=== PATIENT | female | born 1980 | race Caucasian/White ===

== ENCOUNTER → 2019-07-23 | Outpatient (CLI) | payer OTHER ==
--- NOTE | 2019-07-23 13:51 | RAD ---
EXAM: Pelvic sonogram. HISTORY: Pain. TECHNIQUE: Transabdominal and transvaginal sonographic imaging of the pelvis was performed. COMPARISON: None. FINDINGS: The uterus measures 8.7 x 4.5 x 5.3 cm. The endometrial stripe measures 13 mm in thickness. The right ovary is obscured due to bowel gas. The left ovary is normal in size and demonstrates normal blood flow. There are small left ovarian follicles. There is no pelvic free fluid. IMPRESSION: 1. Prominent endometrial stripe. This is within normal limits for a premenopausal female. 2. Obscured right ovary. The left ovary is unremarkable. Electronically signed by: Leora Siddiqui MD (07/23/2019 1:48 PM) [facility]
== END | disposition home or self-care (01) ==
LOC: US 12:45
PROVIDERS: ATTEND Obstetrics & Gynecology
DX: N83.8 Other noninflammatory disorders of ovary, fallopian tube and broad ligament (principal); N94.6 Dysmenorrhea, unspecified; N94.10 Unspecified dyspareunia
CPT/HCPCS: 76830; 76856

== ENCOUNTER 2019-08-26 16:10 | Emergency (ER) | payer OTHER ==
[~2019-08-26] VITALS: Ht 157.5 cm; Wt 44.3 kg
[2019-08-26] MEDS ORDERED: SULF1TAB23 PO (16:54)
--- NOTE | 2019-08-26 16:54 | PHYS DOC ---
Past History Past Medical History: Endometriosis Additional Past Medical Histor: endometriosis Past Surgical History: Tubal ligation Additional Past Surgical Histo: umbilical hernia repair with mesh placed; surgery for endometriosis Alcohol Use: None Drug Use: None Adult General Chief Complaint Chief Complaint: BREAST PROBLEM HPI HPI Patient is a 39-year-old female, who presents to the emergency department for evaluation of some right breast pain which has an present for the past 2-3 days. She has had a small amount of crusty nipple discharge, no fevers or chills. The right breast feels slightly enlarged and warm compared to the left. She has not had any fevers or chills. She is not breast-feedingher youngest child is 4. There are no alleviating or exacerbating factors to her symptoms otherwise. Review of Systems Review of Systems Constitutional: Denies fever or chills [] Eyes: Denies change in visual acuity, redness, or eye pain [] HENT: Denies nasal congestion or sore throat [] Respiratory: Denies cough or shortness of breath [] Integument: Denies rash or skin lesions [] Allergies Allergies Allergies Coded Allergies Type Severity Reaction Last Updated Verified adhesive Allergy Unknown 08/26/19 Yes latex Allergy Unknown 08/26/19 Yes Physical Exam Physical Exam PHYSICAL EXAM: CONSTITUTIONAL: Well developed, well nourished HEAD: normocephalic, atraumatic EENT: PERRL, EOMI. Conjunctivae normal color, sclerae non-icteric; moist mucous membranes. NECK: Supple, non-tender; no meningismus. LUNGS: Lungs CTA, breathing even and unlabored. Normal air movement. HEART: Regular rate and rhythm, no murmur CHEST: No deformity; non-tender ABDOMEN: The abdomen is soft, and non-tender, no masses or bruits. There is a well-healed abdominal surgical scar. EXTREM: Normal ROM; no deformity, no calf tenderness. Normal pulses palpable in all extremities. There is no pedal edema. SKIN: No rash; no diaphoresis. There is very mild warmth of the right breast, compared to left, some questionable mild erythema, but no definite palpable masses, no abscess, the nipple is otherwise normal. There is no other abnormality. Exam was performed in the presence of the patient's nurse, Cristela. NEURO: Alert; normal speech and cognition; CN's grossly intact; strength grossly intact without focal deficit. BACK: No CVA TTP. Current Patient Data Vital Signs Vital Signs Date Time Temp Pulse Resp B/P (MAP) Pulse Ox O2 Delivery O2 Flow Rate FiO2 08/26/19 16:24 97.6 96 16 98 EKG EKG [] Radiology/Procedures Radiology/Procedures [] Course & Med Decision Making Course & Med Decision Making I discussed suspected diagnosis with the patient, therapeutic trial of antibiotics, the need for close follow-up, and return precautions. Dragon Disclaimer Dragon Disclaimer This electronic medical record was generated, in whole or in part, using a voice recognition dictation system. Departure Departure: Impression: Primary Impression: Mastitis Disposition: 01 HOME, SELF-CARE Condition: STABLE Referrals: ROBERT LUTZ (PCP) Patient Instructions: Mastitis Additional Instructions: Ibuprofen 400-600 mg every 6 hours may help improve your symptoms. Applying a heating pad to the affected area may help improve your symptoms. Scripts Sulfamethoxazole/Trimethoprim (BACTRIM 400-80 MG TABLET) 1 Each Tablet 1 TAB PO BID for - for 7 Days, #14 TAB 0 Refills Prov: GREG SHULTZ MD 08/26/19 GREG SHULTZ MD Aug 26, 2019 16:54
[2019-08-26 17:16] VITALS: BP 89/56
== END 2019-08-26 17:16 | disposition home or self-care (01) ==
LOC: ER 16:10
DX: N64.4 Mastodynia (principal); Z98.51 Tubal ligation status; Z88.8 Allergy status to other drugs, medicaments and biological substances; Z91.040 Latex allergy status
CPT/HCPCS: 99283

== ENCOUNTER 2019-10-13 16:13 | Emergency (ER) | payer OTHER ==
[~2019-10-13] VITALS: Ht 157.5 cm; Wt 44.4 kg
[~2019-10-13 16:13] MED LIST: SULF1TAB23 PO
[2019-10-13] MEDS ORDERED: HALOPERIDOL LACT 5 MG/ML VIAL. IM ONE (16:45)
[2019-10-13 17:17] VITALS: BP 90/58
--- NOTE | 2019-10-13 17:24 | EKG ---
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
--- NOTE | 2019-10-13 17:37 | PHYS DOC ---
Past History Past Medical History: Endometriosis, GERD Additional Past Medical Histor: endometriosis Past Surgical History: No Surgical History Additional Past Surgical Histo: umbilical hernia repair with mesh placed; surgery for endometriosis Alcohol Use: None Drug Use: None Adult General Chief Complaint Chief Complaint: ANXIETY/PANIC ATTACK [facility] HPI Patient is a 39-year-old female with history of chronic back pain, endometriosis, tubal ligation, ventral hernia repair and anxiety who presents with palpitations, shortness of breath and increased anxiety state starting 1 hour prior to ED arrival. Patient denies known triggers. States she had said similar episodes and has been treated for anxiety. Patient is currently on Valium 7.5 mg nightly. She is process of weaning herself off of Valium, but has recurred daily benzodiazepines for at least 2 years. Patient does report chest pain. No fever, cough, abdominal pain. No nausea vomiting or diarrhea. No urinary frequency urgency or burning. No other acute symptoms or complaints.[] Review of Systems Review of Systems Constitutional: Denies fever or chills [] Eyes: Denies change in visual acuity, redness, or eye pain [] HENT: Denies nasal congestion or sore throat [] Respiratory: Denies cough or shortness of breath [] Cardiovascular: No additional information not addressed in HPI [] GI: Denies abdominal pain, nausea, vomiting, bloody stools or diarrhea [] : Denies dysuria or hematuria [] Musculoskeletal: Denies back pain or joint pain [] Integument: Denies rash or skin lesions [] Neurologic: Denies headache, focal weakness or sensory changes [] Endocrine: Denies polyuria or polydipsia [] All other systems were reviewed and found to be within normal limits, except as documented in this note. Current Medications Current Medications Current Medications Medications (Trade) Dose Ordered Sig/Angelita Start Time Stop Time Status Last Admin Dose Admin Haloperidol Lactate (Haldol) 2.5 mg 1X ONCE 10/13/19 16:45 10/13/19 16:46 DC 10/13/19 16:39 2.5 MG Allergies Allergies Allergies Coded Allergies Type Severity Reaction Last Updated Verified adhesive Allergy Unknown 08/26/19 Yes latex Allergy Unknown 08/26/19 Yes Physical Exam Physical Exam Constitutional: Anxious, tearful, no acute distress[] HENT: Normocephalic, atraumatic, bilateral external ears normal, oropharynx moist, no oral exudates, nose normal. [] Eyes: PERRLA, EOMI, conjunctiva normal, no discharge. [] Neck: Normal range of motion, no tenderness, supple, no stridor. [] Cardiovascular:Heart rate regular rhythm, no murmur [] Lungs & Thorax: Bilateral breath sounds clear to auscultation [] Abdomen: Bowel sounds normal, soft, minimal lower abdominal tenderness. [] Skin: Warm, dry, no erythema, no rash. [] Back: No tenderness, no CVA tenderness. [] Extremities: No tenderness, no edema. [] Neurologic: Alert and oriented X 3, normal motor function, normal sensory function, no focal deficits noted. [] Psychologic: Affect normal, judgement normal, mood normal. [] Current Patient Data Vital Signs Vital Signs Date Time Temp Pulse Resp B/P (MAP) Pulse Ox O2 Delivery O2 Flow Rate FiO2 10/13/19 16:19 97.8 90 38 102/73 (83) 100 Room Air EKG EKG [EKG: Reviewed] Radiology/Procedures Radiology/Procedures [] Course & Med Decision Making Course & Med Decision Making Pertinent Labs and Imaging studies reviewed. (See chart for details) Although all given with improvement of symptoms. Patient breathing comfortably, decreased anxiety state. Vital signs stable. Recommend continued home medications with PCP follow-up.] Rudion Disclaimer Dragon Disclaimer This electronic medical record was generated, in whole or in part, using a voice recognition dictation system. Departure Departure: Impression: Primary Impression: Anxiety attack Disposition: HOME, SELF-CARE Condition: STABLE Referrals: ROBERT LUTZ (PCP) Patient Instructions: Anxiety and Panic Attacks Additional Instructions: Please go home and rest. Follow up with your PCP and continue home anxiety medication. Follow-up with your PCP as needed for further management of anxiety symptoms. RIKI ARCINIEGA DO Oct 13, 2019 17:37
== END 2019-10-13 17:48 | disposition home or self-care (01) ==
LOC: ER 16:13
DX: F41.9 Anxiety disorder, unspecified (principal); R00.2 Palpitations; R06.02 Shortness of breath; K21.9 Gastro-esophageal reflux disease without esophagitis; Z98.890 Other specified postprocedural states; Z91.048 Other nonmedicinal substance allergy status; Z91.040 Latex allergy status
CPT/HCPCS: 93005; 96372; 99284; J1630

== ENCOUNTER 2019-10-21 09:27 | Emergency (ER) | payer OTHER ==
[~2019-10-21] VITALS: Ht 157.5 cm; Wt 44.4 kg
[2019-10-21 09:37] VITALS: BP 99/72
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
--- NOTE | 2019-10-21 10:28 | RAD ---
EXAM: Chest and right ribs, 4 views. HISTORY: Pain. COMPARISON: None. FINDINGS: A frontal view of the chest and 3 views of the right ribs are obtained. There is no infiltrate, pleural effusion or pneumothorax. The heart is normal in size. No displaced rib fracture is seen. There is a circumscribed nodule overlying the right lower lobe due to nipple shadow. IMPRESSION: No acute pulmonary or osseous finding. Electronically signed by: Leora Siddiqui MD (10/21/2019 10:25 AM) [id number]
[2019-10-21] MEDS ORDERED: HYDR-3165 PO (10:44)
[2019-10-21] MEDS ORDERED: HYDROcodone/APAP 5/325MG 1 TAB TABLET ONE (10:57)
[2019-10-21] MEDS ORDERED: HYDROcodone/APAP 5/325MG 1 TAB TABLET PO ONE (11:00)
== END 2019-10-21 11:00 | disposition home or self-care (01) ==
LOC: ER 09:27
DX: S20.211A Contusion of right front wall of thorax, initial encounter (principal); K21.9 Gastro-esophageal reflux disease without esophagitis; Z91.041 Radiographic dye allergy status; Z91.048 Other nonmedicinal substance allergy status; X50.1XXA Overexertion from prolonged static or awkward postures, initial encounter; Y93.89 Activity, other specified; Y92.89 Other specified places as the place of occurrence of the external cause; Y99.8 Other external cause status
CPT/HCPCS: 71101; 99284

== ENCOUNTER 2019-10-27 11:07 | Emergency (ER) | payer OTHER ==
[~2019-10-27] VITALS: Ht 157.5 cm; Wt 44.4 kg
[~2019-10-27 11:07] MED LIST changes: +HYDR-3165 PO
[2019-10-27 11:21] VITALS: BP 99/72
[2019-10-27] MEDS ORDERED: IBUP800T19 PO (11:27)
[2019-10-27] MEDS ORDERED: PRED20TA PO (11:27)
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
--- NOTE | 2019-10-27 11:47 | RAD ---
Study: SHOULDER 2+V RIGHT Indication: Pain. Comparison: None. Findings: No acute fracture seen at the right shoulder girdle. Alignment is maintained. Unremarkable partially visualized right hemithorax. Impression: No acute osseous abnormality. Electronically signed by: DEVENDRA KENDALL MD (10/27/2019 11:44 AM) [id number]
== END 2019-10-27 11:59 | disposition home or self-care (01) ==
LOC: ER 11:07
DX: M25.511 Pain in right shoulder (principal); K21.9 Gastro-esophageal reflux disease without esophagitis; Z91.040 Latex allergy status; Z91.048 Other nonmedicinal substance allergy status
CPT/HCPCS: 29240; 73030; 99284

== ENCOUNTER 2020-05-11 09:52 | Emergency (ER) | payer OTHER ==
[~2020-05-11] VITALS: Ht 157.5 cm; Wt 44.4 kg
[~2020-05-11 09:52] MED LIST changes: +IBUP800T19 PO; +PRED20TA PO
--- NOTE | 2020-05-11 09:58 | PHYS DOC ---
Past History Past Medical History: Anxiety, Endometriosis, GERD Additional Past Medical Histor: endometriosis Past Surgical History: No Surgical History Additional Past Surgical Histo: umbilical hernia repair with mesh placed; surgery for endometriosis Alcohol Use: Rarely Drug Use: None Adult General Chief Complaint Chief Complaint: ABDOMINAL PAIN [facility] HPI Patient is a 39-year-old female who presents with abdominal pain. Onset was yesterday evening without any known inciting event or trauma. Patient has taken x2 extra strength Tylenol in attempt to alleviate pain with minimal relief. Patient reports pain is bilateral lower quadrants over site of recent total hyst erectomy performed April 29 for endometriosis. Pain is focal without radiation, 9/10 in severity, timing has been constant since onset. Patient reports taking scheduled Percocet 5 that was prescribed by outpatient ANIMAL CYTOLOGIST but ran out yesterday at 11 AM. Patient reports onset of pain correlated with when she was due for her next dose of Percocet. Patient called ANIMAL CYTOLOGIST who subseq uently referred her to seek out emergent evaluation at local ER prompting her arrival today Review of Systems Review of Systems Fourteen body systems of review of systems have been reviewed. See HPI for pertinent positives and negative responses, other perry all other systems are negative, non-pertinent or non-contributory Allergies Allergies Allergies Coded Allergies Type Severity Reaction Last Updated Verified adhesive Allergy Unknown 08/26/19 Yes latex Allergy Unknown 08/26/19 Yes Physical Exam Physical Exam Constitutional: Well developed, thin appearing, moderate distress, non-toxic appearance. HENT: Normocephalic, atraumatic, bilateral external ears normal, oropharynx moist, no oral exudates, nose normal. Eyes: PERRLA, EOMI, conjunctiva normal, no discharge. Neck: Normal range of motion, no tenderness, supple, no stridor. Cardiovascular: Heart rate regular, sinus rhythm, no murmurs rubs or gallops Lungs & Thorax: Bilateral breath sounds clear to auscultation Abdomen: Bowel sounds normal, soft, no masses, no pulsatile masses. Voluntary guarding, no rebound, nonsurgical abdomen, no peritoneal signs. Well-appearing abdominal incision sites from recent transvaginal hysterectomy Skin: Warm, dry, no erythema, no rash. Back: No tenderness, no CVA tenderness. Extremities: No tenderness, no cyanosis, no clubbing, ROM intact, no edema. Neurologic: Alert and oriented X 3, grossly normal motor & sensory function, no focal deficits noted. Psychologic: Tearful, anxious EKG EKG EKG ordered and interpreted by myself at 1022 hrs. as normal sinus rhythm at 68 bpm, unremarkable intervals, left axis deviation, no acute ischemic findings, no STEMI Radiology/Procedures Radiology/Procedures PROCEDURE: CT ABDOMEN PELVIS WO CONTRAST CT abdomen and pelvis without contrast PQRS Compliance Statement: One or more of the following individualized dose reduction techniques were utilized for this examination: 1. Automated exposure control 2. Adjustment of the mA and/or kV according to patient size 3. Use of iterative reconstruction technique HISTORY: Lower pelvic pain, recent hysterectomy April 29 COMPARISON: None TECHNIQUE: Computed tomographic imaging of the abdomen and pelvis were performed without IV contrast. FINDINGS: Lung bases clear. Liver: Fran's lobe prominent Gallbladder unremarkable Spleen negative Adrenal glands negative Kidneys unremarkable Pancreas unremarkable Moderately severe stool retention is present. There is prominent distention of the rectum with air. There is a high density mostly circumferential structure seen at the anorectal junction. The bladder is moderate to marked distention. The uterus does appear to be surgically absent. IMPRESSION: The rectal vault appears unusual with a large amount of gas in the area which may reflect marked distention of the rectum with air. Hyperdense circular incomplete circumferential remaining at the anorectal junction may reflect previous rectal surgery. Rectal perforation is not suggested but not entirely excluded with poor visualization of the mid distal rectal wall. Moderately severe stool retention Moderately severe urinary retention Electronically signed by: Boubacar Martinez MD (05/11/2020 11:40 AM) [id number] PROCEDURE: PORTABLE CHEST 1V Single AP view of the chest. Comparison: 10/21/2019. Indication: Postop hysterectomy Findings: The heart is not enlarged. There is no pneumothorax or effusion. No air space or interstitial disease. Impression: 1. No acute cardiopulmonary process. Electronically signed by: Eduar Lovett MD (05/11/2020 11:19 AM) [id number] Course & Med Decision Making Course & Med Decision Making Airway patent, breathing unlabored, vital signs grossly unremarkable Comprehensive history and physical exam obtained, pertinent laboratory and imaging studies then ordered IV access obtained, IV fluid rehydration with 1 L normal saline, 25 mcg fentanyl administered with great symptomatic relief Diagnostic work-up reviewed with patient, not emergent/surgical findings at present, pain likely due to severe constipation. Cannot exclude pain seeking behavior in patient who recently ran out of narcotic pain medications and has long history of opioid dependence Discussed ED course with patient. She had relief with fentanyl. Described importance of OTC stool softeners, high-fiber diet, and increase p.o. water intake I do not feel comfortable prescribing patient more narcotic pain medications, especially in the setting of concomitant benzodiazepine use for underlying anxiety. I do feel patient's anxiety is exacerbating presenting symptoms today Patient is able to see ANIMAL CYTOLOGIST for follow-up this week, I advised her to follow- up to ensure improved symptomology With that said, I did educate patient that findings of abdominal pain today might be an acute presentation of more serious pathology Strict return precautions discussed at length with good understanding, all questions and concerns addressed prior to ER departure in stable condition with close PCP and ANIMAL CYTOLOGIST follow-up Isaac Disclaimer Isaac Disclaimer This electronic medical record was generated, in whole or in part, using a voice recognition dictation system. Departure Departure: Impression: Primary Impression: Abdominal pain Additional Impressions: Constipation Anxiety about health Opioid dependence Disposition: HOME/RESIDENCE PRIOR TO ADM Condition: STABLE Referrals: ROBERT LUTZ (PCP) Patient Instructions: Constipation, Adult Additional Instructions: You have been evaluated in the Emergency Department today for abdominal pain. Your evaluation was not suggestive of any emergent condition requiring medical intervention at this time. However, some abdominal problems make take more time to appear. Therefore, it is important for you to watch for any new symptoms or worsening of your current condition. Please follow up with your primary care physician/[facility] in upcoming 1 to 7 days. Return to the Emergency Department if you experience worsening pain, persistent fevers greater than 100.4, recurrent vomiting, blood in vomit, blood in stool, dark tarry stool, chest pain, difficulty breathing, or any other concerning symptoms. Justification of Admission: Justification of Admission: Justification of Admission Dx: N/A Problem Qualifiers EWA FRANKS DO May 11, 2020 09:58
[2020-05-11] MEDS ORDERED: IV NORMAL SALINE 1,000ML 1,000 ML IV SCH (10:35)
[2020-05-11 11:07] LABS: BASO # 0.1 x10^3/uL (0.0-0.2); BASO % 1 % (0-3); EOS # 0.1 x10^3/uL (0.0-0.7); EOS % 2 % (0-3); HEMATOCRIT 44.7 % (36.0-47.0); HEMOGLOBIN 15.2 g/dL (12.0-15.5); LYMPH % 31 % (24-48); MEAN CORPUSCULAR HEMOGLOBIN 31 pg (25-35); MEAN CORPUSCULAR HGB CONC 34 g/dL (31-37); MEAN CORPUSCULAR VOLUME 91 fL (79-100); MONO # 0.4 x10^3/uL (0.0-1.1); MONO % 6 % (0-9); NEUT # 3.8 x10^3uL (1.8-7.7); NEUT % 59 % (31-73); PLATELET COUNT 225 x10^3/uL (140-400); RED BLOOD COUNT 4.92 x10^6/uL (3.50-5.40); RED CELL DISTRIBUTION WIDTH 12.4 % (11.5-14.5); WHITE BLOOD COUNT 6.4 x10^3/uL (4.0-11.0)
[2020-05-11 11:16] LABS: CALCIUM 9.3 mg/dL (8.5-10.1); CREATININE 0.9 mg/dL (0.6-1.0); GFR 70.5; POTASSIUM 4.3 mmol/L (3.5-5.1)
[2020-05-11 11:22] LABS: ALBUMIN 4.1 g/dL (3.4-5.0); ALBUMIN/GLOBULIN RATIO 1.1 (1.0-1.7); TOTAL BILIRUBIN 0.6 mg/dL (0.2-1.0); TOTAL PROTEIN 7.9 g/dL (6.4-8.2)
--- NOTE | 2020-05-11 11:22 | RAD ---
Single AP view of the chest. Comparison: 10/21/2019. Indication: Postop hysterectomy Findings: The heart is not enlarged. There is no pneumothorax or effusion. No air space or interstitial disease. Impression: 1. No acute cardiopulmonary process. Electronically signed by: Eduar Lovett MD (05/11/2020 11:19 AM) [id number]
--- NOTE | 2020-05-11 11:43 | RAD ---
CT abdomen and pelvis without contrast PQRS Compliance Statement: One or more of the following individualized dose reduction techniques were utilized for this examination: 1. Automated exposure control 2. Adjustment of the mA and/or kV according to patient size 3. Use of iterative reconstruction technique HISTORY: Lower pelvic pain, recent hysterectomy April 29 COMPARISON: None TECHNIQUE: Computed tomographic imaging of the abdomen and pelvis were performed without IV contrast. FINDINGS: Lung bases clear. Liver: Fran's lobe prominent Gallbladder unremarkable Spleen negative Adrenal glands negative Kidneys unremarkable Pancreas unremarkable Moderately severe stool retention is present. There is prominent distention of the rectum with air. There is a high density mostly circumferential structure seen at the anorectal junction. The bladder is moderate to marked distention. The uterus does appear to be surgically absent. IMPRESSION: The rectal vault appears unusual with a large amount of gas in the area which may reflect marked distention of the rectum with air. Hyperdense circular incomplete circumferential remaining at the anorectal junction may reflect previous rectal surgery. Rectal perforation is not suggested but not entirely excluded with poor visualization of the mid distal rectal wall. Moderately severe stool retention Moderately severe urinary retention Electronically signed by: Boubacar Martinez MD (05/11/2020 11:40 AM) [id number]
[2020-05-11 12:19] LABS: BACTERIA,URINE FEW /HPF (0-FEW); BILIRUBIN,URINE NEG (NEG); CLARITY,URINE CLEAR; COLOR,URINE YELLOW; GLUCOSE,URINE NEG (NEG); NITRITE,URINE NEG (NEG); RBC,URINE OCC /HPF (0-2); SQUAMOUS EPITHELIAL CELL,UR FEW /LPF; UROBILINOGEN,URINE 0.2 mg/dL (0.2 mg/dL); WBC,URINE OCC /HPF (0-4)
[2020-05-11 12:33] VITALS: BP 92/53
== END 2020-05-11 12:50 | disposition home or self-care (01) ==
LOC: ER 09:52
DX: K59.00 Constipation, unspecified (principal); R10.31 Right lower quadrant pain; R10.32 Left lower quadrant pain; F41.9 Anxiety disorder, unspecified; F11.20 Opioid dependence, uncomplicated; K21.9 Gastro-esophageal reflux disease without esophagitis; Z88.8 Allergy status to other drugs, medicaments and biological substances; Z91.040 Latex allergy status
CPT/HCPCS: 36415; 71045; 74176; 80053; 81001; 83690; 84484; 85025; 96361; 96374; 99285; J3010; J7030

== ENCOUNTER 2020-08-16 13:55 | Emergency (ER) | payer OTHER ==
[~2020-08-16] VITALS: Ht 157.5 cm; Wt 41.3 kg
[2020-08-16 14:08] VITALS: BP 119/68
[2020-08-16] MEDS ORDERED: IV NORMAL SALINE 1,000ML 1,000 ML IV ONE (14:45)
[2020-08-16] MEDS ORDERED: ONDANSETRON PF 4 MG/2 ML VIAL. IVP ONE (14:45)
--- NOTE | 2020-08-16 15:03 | EKG ---
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
--- NOTE | 2020-08-16 15:03 | RAD ---
EXAM: CHEST PA LATERAL INDICATION: Reason: CHEST PAIN / Spl. Instructions: / History: . TECHNIQUE: PA and lateral views COMPARISON: 05/11/2020 chest x-ray FINDINGS: The heart size is normal. The great vessels appear unremarkable. There is no hilar or mediastinal mass. The lungs are clear. There is no pleural effusion or pneumothorax. There are no significant osseous abnormalities. IMPRESSION: No active cardiopulmonary disease. Electronically signed by: Larisa De Leon MD (08/16/2020 3:00 PM) [id number]
[2020-08-16 15:15] LABS: BASO % 1 % (0-3); EOS # 0.1 x10^3/uL (0.0-0.7); EOS % 1 % (0-3); HEMATOCRIT 43.1 % (36.0-47.0); HEMOGLOBIN 14.5 g/dL (12.0-15.5); LYMPH # 2.2 x10^3/uL (1.0-4.8); LYMPH % 32 % (24-48); MEAN CORPUSCULAR HEMOGLOBIN 31 pg (25-35); MEAN CORPUSCULAR HGB CONC 34 g/dL (31-37); MEAN CORPUSCULAR VOLUME 91 fL (79-100); MONO # 0.5 x10^3/uL (0.0-1.1); MONO % 8 % (0-9); NEUT # 4.1 x10^3uL (1.8-7.7); NEUT % 59 % (31-73); PLATELET COUNT 151 x10^3/uL (140-400); RED BLOOD COUNT 4.74 x10^6/uL (3.50-5.40); RED CELL DISTRIBUTION WIDTH 12.1 % (11.5-14.5); WHITE BLOOD COUNT 6.9 x10^3/uL (4.0-11.0)
--- NOTE | 2020-08-16 15:16 | PHYS DOC ---
Past History Past Medical History: Anxiety, Endometriosis, GERD Additional Past Medical Histor: endometriosis (TERESAARINA CANTU) Past Surgical History: Hysterectomy, Oophorectomy Additional Past Surgical Histo: umbilical hernia repair with mesh placed; surgery for endometriosis (TERESAARINA CANTU) Alcohol Use: Rarely Drug Use: None (TERESAARINA CANTU) Adult General Chief Complaint Chief Complaint: MULTIPLE COMPLAINTS HPI HPI Patient is a 40-year-old female who presents to the emergency department with complaints of Valium withdraw symptoms. Patient states she has been on Valium 10 mg once a day since the beginning of 2017 related to what she says was a misdiagnosis of Lyme's disease in which she was diagnosed with panic disorders and placed on daily Valium. Patient states that she also has chronic aches and pains for which she takes OxyContin tablets for. Patient states that her physician has been trying to wean her off her Valium and OxyContin and has recommended pain management for control. Patient states that she has an appointment this coming Monday at pain management. Patient states over the past 3 weeks her physician has decreased her dose of Valium to 7.5 mg/day for a week then down to 5 mg/day which she is currently taking now. Patient states that since starting her decreased dosing of Valium she has noticed for the past 3 weeks increased nausea with intermittent vomiting, intermittent sternal chest pains, intermittent body tremors, intermittent generalized body aches. Patient currently complains of body tremors, nausea, vomiting x3 noticing clear vomitus moderate amount, 10/10 chest pain sternally without radiation, patient states that nothing seems to make it better however it gets worse if she gets upset thinking about her symptoms. Patient states that she was treated for her was diagnosed Lyme's disease with several months of p.o. doxycycline, patient states that she no longer has symptoms from her Lyme's disease. Patient reports her medications as progesterone cream, estradiol 1 mg daily, oxycodone Contin IR 60 mg 3 times a day, Valium 5 mg daily, patient also states she vapes CBD oil to help with her chronic pains. Patient states she had a tubal ligation in 2015, a ventral mesh related to ventral hernia in 2017, and a hysterectomy on April 29, 2020. Patient states she does smoke cigarettes, denies ingestion of any other illicit drugs, does not drink alcohol. Patient denies fever or chills, denies visual changes, denies nasal congestion, cough, or shortness of breath. Patient denies any abdominal pain, diarrhea constipation or blood in the stools, denies problems urinating, denies vaginal discharge, denies STI concerns. Patient denies rashes of her skin, focal weaknesses, or sensory changes. Patient denies any increased urination or increased thirst. Patient denies swelling of her glands, patient denies recent depressions or anxieties, denies homicidal or suicidal ideations. Patient states she lives with her and 4 children at home who are not experiencing any illnesses. (ARINA MOORE APRN) Review of Systems Review of Systems Constitutional: Denies fever or chills Eyes: Denies change in visual acuity, redness, or eye pain HENT: Denies nasal congestion or sore throat Respiratory: Denies cough or shortness of breath Cardiovascular: Complains of sternal chest pain nonradiating she rates headache 10/10 pain on a 1-10 pain scale. GI: Denies abdominal pain, constipation, bloody stools or diarrhea, complains of nausea with vomiting x3 today clear vomitus moderate amount. : Denies dysuria or hematuria denies STI concerns denies vaginal discharge. Musculoskeletal: Complains of chronic body aches on her back and extremities for years, no increase in pains recently. Integument: Denies rash or skin lesions Neurologic: Denies headache, focal weakness or sensory changes Endocrine: Denies polyuria or polydipsia Psychiatric: Patient denies recent changes in depression or anxieties, denies homicidal or suicidal ideations. All other systems were reviewed and found to be within normal limits, except as documented in this note. (ARINA MOORE APRN) Family History Family History Patient states that her father is in hospice related to COPD, hypertension, cancer of the lung and kidney. Patient states her mother is healthy, patient states she has 2 brothers and 1 sister who have no health problems are healthy. (ARINA MOORE APRN) Current Medications Current Medications Current Medications Medications (Trade) Dose Ordered Sig/Angelita Start Time Stop Time Status Last Admin Dose Admin Ondansetron HCl (Zofran) 4 mg 1X ONCE 08/16/20 14:45 08/16/20 14:46 DC 08/16/20 14:56 4 MG Sodium Chloride 1,000 ml @ 1,000 mls/hr 1X ONCE 08/16/20 14:45 08/16/20 15:44 08/16/20 14:56 1,000 MLS/HR (ARINA MOORE APRN) Allergies Allergies Allergies Coded Allergies Type Severity Reaction Last Updated Verified adhesive Allergy Unknown 05/11/20 Yes latex Allergy Unknown 05/11/20 Yes (ARINA MOORE APRN) Physical Exam Physical Exam Constitutional: Well developed, well nourished, no acute distress, non-toxic appearance. Patient was shaking her hands and lower extremities during exam but would stop shaking them when asked to do auscultation and palpation exams. HENT: Normocephalic, atraumatic, bilateral external ears normal, oropharynx moist, no oral exudates, nose normal. Eyes: PERRLA, EOMI, conjunctiva normal, no discharge. Pupils 4 mm, no mydriasis noted. Neck: Normal range of motion, no tenderness, supple, no stridor. Cardiovascular:Heart rate regular rhythm, no murmur, heart sounds S1-S2 auscultation. Lungs & Thorax: Bilateral breath sounds clear to auscultation all lung chávez. Abdomen: Bowel sounds normal, soft, no tenderness, no masses, no pulsatile masses. Skin: Warm, dry, no erythema, no rash. Back: No tenderness, no CVA tenderness. Extremities: No tenderness, no cyanosis, no clubbing, ROM intact, no edema. Neurologic: Alert and oriented X 3, normal motor function, normal sensory function, no focal deficits noted. As noted in constitutional, patient would sh sim her hands and lower extremities with tremor-like motion when conversing about medical conditions, patient would stop her tremor-like motion when asked and when diverted through conversation outside of her physical presentations, patient would then resume her tremor-like motions. Psychologic: Affect normal, judgement normal, mood normal. [] (ARINA MOORE APRN) Current Patient Data Vital Signs Vital Signs Date Time Temp Pulse Resp B/P (MAP) Pulse Ox O2 Delivery O2 Flow Rate FiO2 08/16/20 14:08 98.1 98 24 119/68 (85) 97 Lab Results Laboratory Tests Test 08/16/20 14:52 08/16/20 16:15 White Blood Count 6.9 x10^3/uL Red Blood Count 4.74 x10^6/uL Hemoglobin 14.5 g/dL Hematocrit 43.1 % Mean Corpuscular Volume 91 fL Mean Corpuscular Hemoglobin 31 pg Mean Corpuscular Hemoglobin Concent 34 g/dL Red Cell Distribution Width 12.1 % Platelet Count 151 x10^3/uL Neutrophils (%) (Auto) 59 % Lymphocytes (%) (Auto) 32 % Monocytes (%) (Auto) 8 % Eosinophils (%) (Auto) 1 % Basophils (%) (Auto) 1 % Neutrophils # (Auto) 4.1 x10^3uL Lymphocytes # (Auto) 2.2 x10^3/uL Monocytes # (Auto) 0.5 x10^3/uL Eosinophils # (Auto) 0.1 x10^3/uL Basophils # (Auto) 0.0 x10^3/uL Sodium Level 139 mmol/L Potassium Level 3.7 mmol/L Chloride Level 101 mmol/L Carbon Dioxide Level 28 mmol/L Anion Gap 10 Blood Urea Nitrogen 10 mg/dL Creatinine 0.6 mg/dL Estimated GFR (Cockcroft-Gault) 111.9 BUN/Creatinine Ratio 17 Glucose Level 85 mg/dL Calcium Level 8.8 mg/dL Total Bilirubin 0.5 mg/dL Aspartate Amino Transf (AST/SGOT) 16 U/L Alanine Aminotransferase (ALT/SGPT) 19 U/L Alkaline Phosphatase 58 U/L Lactate Dehydrogenase 133 U/L Creatine Kinase 53 U/L Creatine Kinase MB (Mass) 0.5 ng/mL Creatine Kinase MB Relative Index 0.9 % Troponin I Quantitative < 0.017 ng/mL C-Reactive Protein < 0.5 mg/L Total Protein 7.1 g/dL Albumin 4.0 g/dL Albumin/Globulin Ratio 1.3 Urine Collection Type Unknown Urine Color Yellow Urine Clarity Clear Urine pH 6.5 Urine Specific [place] 1.010 Urine Protein Neg Urine Glucose (UA) Neg mg/dL Urine Ketones (Stick) 15 mg/dL Urine Blood Neg Urine Nitrite Neg Urine Bilirubin Neg Urine Urobilinogen Dipstick 0.2 mg/dL Urine Leukocyte Esterase Neg Urine RBC 0 /HPF Urine WBC 0 /HPF Urine Squamous Epithelial Cells Few /LPF Urine Bacteria 0 /HPF Urine Opiates Screen Neg Urine Methadone Screen Neg Urine Barbiturates Neg Urine Phencyclidine Screen Neg Urine Amphetamine/Methamphetamine Neg Urine Benzodiazepines Screen Pos Urine Cocaine Screen Neg Urine Cannabinoids Screen Pos Urine Ethyl Alcohol Neg Current Medications Medications (Trade) Dose Ordered Sig/Angelita Route PRN Reason Start Time Stop Time Status Last Admin Dose Admin Sodium Chloride 1,000 ml @ 1,000 mls/hr 1X ONCE IV 08/16/20 14:45 08/16/20 15:44 DC 08/16/20 14:56 Ondansetron HCl (Zofran) 4 mg 1X ONCE IVP 08/16/20 14:45 08/16/20 14:46 DC 08/16/20 14:56 (ARINA MOORE APRN) EKG EKG EKG performed at 1458 by house respiratory therapist, heart rate was 74 bpm, normal sinus rhythm without ectopy, FL interval 0.148, QTc interval 0.436, no STEMI, no ACS, no ischemia noted, EKG interpreted by ED attending Dr. Franks. (ARINA MOORE APRN) Radiology/Procedures Radiology/Procedures []REASON: CHEST PAIN PROCEDURE: CHEST PA & LATERAL EXAM: CHEST PA LATERAL INDICATION: Reason: CHEST PAIN / Spl. Instructions: / History: . TECHNIQUE: PA and lateral views COMPARISON: 05/11/2020 chest x-ray FINDINGS: The heart size is normal. The great vessels appear unremarkable. There is no hilar or mediastinal mass. The lungs are clear. There is no pleural effusion or pneumothorax. There are no significant osseous abnormalities. IMPRESSION: No active cardiopulmonary disease. Electronically signed by: Felicitas De Leon MD (08/16/2020 3:00 PM) [id number] DICTATED AND SIGNED BY: FELICITAS DE LEON MD DATE: 08/16/20 1500 CC: ARINA MOORE APRN; EWA FRANKS DO; ROBERT LUTZ ~MTH0 0 (ARINA MOORE APRN) Heart Score HEART Score for Chest Pain: HEART Score for Chest Pain Response (Comments) Value History Slighlty/Non-Suspicious 0 ECG Normal 0 Age < 45 0 Risk Factors 1 or 2 Risk Factors 1 Troponin < Normal Limit 0 Total 1 Risk Factors: Risk Factors: DM, Current or recent (<one month) smoker, HTN, HLP, family history of CAD, obesity. Risk Scores: Risk Factors: DM, Current or recent (<one month) smoker, HTN, HLP, family history of CAD, obesity. (ARINA MOORE APRN) Course & Med Decision Making Course & Med Decision Making Pertinent Labs and Imaging studies reviewed. (See chart for details) 40-year-old female reports emergency department vital signs were stable, patient is a cigarette smoker [id number] smoker, denies illicit drug use however urine drug screen was positive for marijuana, denies alcohol use. Patient states she is withdrawing from Valium, patient states she also takes 60 mg OxyContin IR for chronic aches and pains, however urine drug screen did not show opiates. Patient states she has been on Valium for approximately 2-1/2 years for a missed diagnosis of Lyme's disease in which she was diagnosed with panic disorder started on 10 mg of Valium daily. Her primary care physician has been working closely with her to wean her off her Valium with intentions to wean her off of her opiate medications. Patient has a appointment with pain management this Monday, August 21, 2020. Patient did complain of sternal chest pain without radiation. Physical examination was unremarkable however patient did s jena her upper and lower extremities during examination, but would stop when asked to, would also stop her shaking type movements when discussions were not focused on her current health conditions. In ER work-up was performed, EKG was negative for ACS, STEMI, acute ischemia, interpreted by ED attending Dr. Franks. Patient's labs were negative for acute process, patient's labs were negative for acute infection, her urine was not infected. Chest x-ray read by house radiologist negative for acute process. Discussed findings with patient, discussed with patient we will not give opiate medications or benzo medications because of her pain management contract with her primary care physician and her upcoming pain management appointment. Patient was amendable to this healthcare plan, gave verbal understanding of discharge home instructions, return to the emergency room concerns, patient had no further questions or concerns, patient discharged home without incident. Diagnosis benzodiazepine withdrawal, however states symptoms may be psychosomatic in nature. The patient was not tachycardic, patient remained normal vital signs throughout ER stay, the patient was not hyperthermic, the patient was not experiencing hallucinations, the patient had no seizure-like activity, this is unlikely an alcohol withdraw related to no alcohol and urine, labs did not support a SYMPATHOMIMETIC or anticholinergic ingestion, this is not a infectious process, possible anxiety with psychosomatic process, unlikely a pheochromocytoma, schizophrenia exacerbation, or epilepsy. (ARINA MOORE APRN) Course & Med Decision Making I have reviewed the SOUND TECHNICIAN SUPERVISOR's note and plan of care. I was available for consultation as needed during the patient's visit in the emergency department. I agree with the clinical impression, plan, and disposition. KTR[facility] history reviewed, no active benzodiazepine and/or narcotic prescription in greater than 1 month. I am concerned for drug-seeking activity/behavior. She is stable for discharge home with outpatient follow-up as she is overall well-appearing, tolerating p.o. and hemodynamically stable (EWA FRANKS DO) Dragon Disclaimer Dragon Disclaimer This electronic medical record was generated, in whole or in part, using a voice recognition dictation system. (ARINA MOORE APRN) Departure Departure: Impression: Primary Impression: Benzodiazepine withdrawal Disposition: 01 DC HOME SELF CARE/HOMELESS Condition: IMPROVED Referrals: ROBERT LUTZ (PCP) Patient Instructions: Benzodiazepine Withdrawal Additional Instructions: You have been evaluated for benzodiazepine/Valium withdrawal, please keep your pain management appointment this coming Monday, stay in close contact with your primary care physician and let him know your symptoms. Return to the emergency department for worsening symptoms or further concerns. EMERGENCY DEPARTMENT GENERAL DISCHARGE INSTRUCTIONS Thank you for coming to [facility] (ED) today and trusting us with you care. We trust that you had a positivie experience in our Emergency Department. If you wish to speak to the department management, you may call the director at [phone]. YOUR FOLLOW UP INSTRUCTIONS ARE FOLLOWS: 1. Do you have a private Doctor? If you do not have a private doctor, please a sk for a resource list of physicians or clinics that may be able to assist you with follow up care. 2. The Emergency Physician has interpreted your x-rays. The X-Ray specialist will also review them. If there is a change in the findings, you will be notified in 48 hours when at all possible. 3. A lab test or culture has been done, your results will be reviewed and you will be notified if you need a change in treatment. ADDITIONAL INSTRUCTIONS AND INFORMATION: 1. Your care today has been supervised by a physician who is specially trained in emergency care. Many problems require more than one evaluation for a complete diagnosis and treatment. We recommend that you schedule your follow up appointment as recommended to ensure complete treatment of you illness or injury. If you are unable to obtain follow up care and continue to have a problem, or if your condition worsens, we recommend that you return to the ED. 2. We are not able to safely determine your condition over the phone nor are we able to give sound medical advice over the phone. For these safety reasons, if you call for medical advice we will ask you to come to the ED for further evaluation. 3. If you have any questions regarding these discharge instructions please call the ED at [phone]. SAFETY INFORMATION: In the interest of safety, wellness, and injury prevention; we encourage you to wear your sealbelt, if you smoke; quite smoking, and we encourage family to use a protective helmet for bicycling and other sporting events that present an increased risk for head injury. IF YOUR SYMPTOMS WORSEN OR NEW SYMPTOMS DEVELOP, OR YOU HAVE CONCERNS ABOUT YOUR CONDITION; OR IF YOUR CONDITION WORSENS WHILE YOU ARE WAITING FOR YOUR FOLLOW UP APPOINTMENT; EITHER CONTACT YOUR PRIMARY CARE DOCTOR, THE PHYSICIAN WHOSE NAME AND NUMBER YOU WERE GIVEN, OR RETURN TO THE ED IMMEDIATELY. Problem Qualifiers Primary Impression: Benzodiazepine withdrawal Complication of substance-induced condition: with unspecified complication Qualified Codes: F13.239 - Sedative, hypnotic or anxiolytic dependence with withdrawal, unspecified ARINA MOORE APRN Aug 16, 2020 15:16 EWA FRANKS DO Aug 17, 2020 06:09
[2020-08-16 15:21] LABS: ANION GAP 10 (6-14); BLOOD UREA NITROGEN 10 mg/dL (7-20); BUN/CREATININE RATIO 17 (6-20); CALCIUM 8.8 mg/dL (8.5-10.1); CARBON DIOXIDE 28 mmol/L (21-32); CHLORIDE 101 mmol/L (98-107); CREATININE 0.6 mg/dL (0.6-1.0); GFR 111.9; GLUCOSE 85 mg/dL (70-99); POTASSIUM 3.7 mmol/L (3.5-5.1); SODIUM 139 mmol/L (136-145)
[2020-08-16 15:27] LABS: ALBUMIN/GLOBULIN RATIO 1.3 (1.0-1.7); ALK PHOS 58 U/L (46-116); ALT (SGPT) 19 U/L (14-59); AST (SGOT) 16 U/L (15-37); LACTATE DEHYDROGENASE 133 U/L (81-234); TOTAL BILIRUBIN 0.5 mg/dL (0.2-1.0); TOTAL PROTEIN 7.1 g/dL (6.4-8.2)
[2020-08-16 15:30] LABS: C REACTIVE PROTEIN < 0.5 mg/L (0-3.3)
[2020-08-16 16:41] LABS: BARBITURATES NEG (NEG); BENZODIAZEPINES POS (NEG); CANNABINOIDS POS (NEG); COCAINE NEG (NEG); METHADONE NEG (NEG); OPIATES NEG (NEG); PHENCYCLIDINE NEG (NEG)
[2020-08-16 16:44] LABS: BILIRUBIN,URINE NEG (NEG); CLARITY,URINE CLEAR; COLOR,URINE YELLOW; GLUCOSE,URINE NEG (NEG); UROBILINOGEN,URINE 0.2 mg/dL (0.2 mg/dL)
[2020-08-16 16:45] LABS: BACTERIA,URINE 0 /HPF (0-FEW); NITRITE,URINE NEG (NEG); RBC,URINE 0 /HPF (0-2); SQUAMOUS EPITHELIAL CELL,UR FEW /LPF; WBC,URINE 0 /HPF (0-4)
[2020-08-16 16:48] LABS: AMPHETAMINE/METHAMPHETAMINE NEG (NEG)
== END 2020-08-16 17:19 | disposition home or self-care (01) ==
LOC: ER 13:55
DX: F13.239 Sedative, hypnotic or anxiolytic dependence with withdrawal, unspecified (principal); R07.89 Other chest pain; R11.2 Nausea with vomiting, unspecified; F41.9 Anxiety disorder, unspecified; K21.9 Gastro-esophageal reflux disease without esophagitis; I10 Essential (primary) hypertension; Z90.710 Acquired absence of both cervix and uterus; Z90.89 Acquired absence of other organs; Z98.890 Other specified postprocedural states; Z91.040 Latex allergy status; Z88.8 Allergy status to other drugs, medicaments and biological substances
CPT/HCPCS: 36415; 71046; 80053; 80307; 81001; 82553; 83615; 84484; 85025; 86140; 93005; 96361; 96374; 99285; J2405; J7030

== ENCOUNTER 2021-01-18 16:17 | Emergency (ER) | payer OTHER ==
[~2021-01-18] VITALS: Ht 157.5 cm; Wt 41.3 kg
[2021-01-18] MEDS ORDERED: ONDANSETRON PF 4 MG/2 ML VIAL. IVP ONE (17:00)
[2021-01-18] MEDS ORDERED: IV NORMAL SALINE 1,000ML 1,000 ML IV ONE (17:00)
[2021-01-18] MEDS ORDERED: MORPHINE SULFATE 4 MG/ML DISP.SYRIN. IV ONE ×2 (17:00→18:30)
[2021-01-18] MEDS ORDERED: MORPHINE SULFATE 4 MG/ML DISP.SYRIN. ONE (17:06)
[2021-01-18 17:11] LABS: BASO # 0.1 x10^3/uL (0.0-0.2); BASO % 1 % (0-3); EOS # 0.1 x10^3/uL (0.0-0.7); EOS % 2 % (0-3); HEMATOCRIT 40.2 % (36.0-47.0); HEMOGLOBIN 13.8 g/dL (12.0-15.5); LYMPH # 2.9 x10^3/uL (1.0-4.8); LYMPH % 44 % (24-48); MEAN CORPUSCULAR HEMOGLOBIN 32 pg (25-35); MEAN CORPUSCULAR HGB CONC 34 g/dL (31-37); MEAN CORPUSCULAR VOLUME 94 fL (79-100); MONO # 0.5 x10^3/uL (0.0-1.1); MONO % 8 % (0-9); NEUT # 3.1 x10^3uL (1.8-7.7); NEUT % 46 % (31-73); PLATELET COUNT 145 x10^3/uL (140-400); RED BLOOD COUNT 4.29 x10^6/uL (3.50-5.40); RED CELL DISTRIBUTION WIDTH 12.1 % (11.5-14.5); WHITE BLOOD COUNT 6.6 x10^3/uL (4.0-11.0)
--- NOTE | 2021-01-18 17:20 | RAD ---
EXAMINATION: XR CHEST 1V CLINICAL HISTORY: Chest pain EXAM DATE/TIME: 01/18/2021 4:55 PM COMPARISON: 08/16/2020 FINDINGS: Lines, Tubes, and Devices: None. Cardiomediastinal Silhouette: Within normal limits. Lungs and Pleura: No evidence of focal airspace consolidation or pleural effusion. Pulmonary vasculat ure unremarkable. Bones and Soft Tissues: No acute osseous abnormality. IMPRESSION: No evidence of acute cardiopulmonary abnormality or significant interval change. Electronically signed by: Ayan Beck DO (01/18/2021 5:18 PM) KAMALA
[2021-01-18 17:21] LABS: BACTERIA,URINE 0 /HPF (0-FEW); BILIRUBIN,URINE NEG (NEG); CLARITY,URINE CLEAR; COLOR,URINE YELLOW; GLUCOSE,URINE NEG (NEG); NITRITE,URINE NEG (NEG); RBC,URINE 0 /HPF (0-2); SQUAMOUS EPITHELIAL CELL,UR OCC /LPF; UROBILINOGEN,URINE 0.2 mg/dL (0.2 mg/dL); WBC,URINE 0 /HPF (0-4)
[2021-01-18 17:22] LABS: CALCIUM 8.9 mg/dL (8.5-10.1); CREATININE 0.6 mg/dL (0.6-1.0); GFR 111.9; POTASSIUM 3.7 mmol/L (3.5-5.1)
[2021-01-18 17:28] LABS: ALBUMIN 3.9 g/dL (3.4-5.0); ALBUMIN/GLOBULIN RATIO 1.3 (1.0-1.7); TOTAL BILIRUBIN 0.6 mg/dL (0.2-1.0); TOTAL PROTEIN 6.9 g/dL (6.4-8.2)
--- NOTE | 2021-01-18 17:31 | PHYS DOC ---
Past History Past Medical History: Anxiety, Endometriosis, GERD Additional Past Medical Histor: endometriosis Past Surgical History: Hysterectomy, Oophorectomy, Tubal ligation Additional Past Surgical Histo: umbilical hernia repair with mesh placed; surgery for endometriosis Alcohol Use: Rarely Drug Use: None General Adult EDM: Chief Complaint: ABDOMINAL PAIN HPI: HPI: Patient is a 40-year-old female who presents with right lower quadrant pain that radiates to her right flank. Patient states that she has a history of chronic abdominal pain. "This feels different than my normal abdominal pain". Patient reports nausea, diarrhea, fever. Patient denies vomiting. Denies dysuria. Patient states that she been taking ibuprofen and Tylenol for discomfort, with no relief. Patient has history of endometriosis and anxiety. Review of Systems: Review of Systems: Constitutional: Denies fever or chills Eyes: Denies change in visual acuity HENT: Denies nasal congestion or sore throat Respiratory: Denies cough or shortness of breath Cardiovascular: Denies chest pain or edema GI: Reports right lower quadrant abdominal pain, nausea, diarrhea. Denies vomiting. : Denies dysuria Musculoskeletal: Denies back pain or joint pain Integument: Denies rash Neurologic: Denies headache, focal weakness or sensory changes Endocrine: Denies polyuria or polydipsia Lymphatic: Denies swollen glands Psychiatric: Reports depression and anxiety Current Medications: Current Meds: Current Medications Medications (Trade) Dose Ordered Sig/Angelita Start Time Stop Time Status Last Admin Dose Admin Morphine Sulfate (Morphine 4mg Syringe) 4 mg STK-MED ONCE 01/18/21 17:06 01/18/21 17:07 DC Ondansetron HCl (Zofran) 4 mg 1X ONCE 01/18/21 17:00 01/18/21 17:07 DC 01/18/21 17:08 4 MG Sodium Chloride 1,000 ml @ 1,000 mls/hr 1X ONCE 01/18/21 17:00 01/18/21 17:59 01/18/21 17:08 1,000 MLS/HR Allergies: Allergies: Allergies Coded Allergies Type Severity Reaction Last Updated Verified adhesive Allergy Unknown 05/11/20 Yes latex Allergy Unknown 05/11/20 Yes Physical Exam: PE: Constitutional: Well developed, well nourished, no acute distress, non-toxic appearance. [] HENT: Normocephalic, atraumatic, bilateral external ears normal, oropharynx moist, no oral exudates, nose normal. [] Eyes: PERRLA, EOMI, conjunctiva normal, no discharge. [] Neck: Normal range of motion, no tenderness, supple, no stridor. [] Cardiovascular:Heart rate regular rhythm, no murmur [] Lungs & Thorax: Bilateral breath sounds clear to auscultation [] Abdomen: Bowel sounds normal, soft, right lower quadrant tenderness Skin: Warm, dry, no erythema, no rash. [] Back: No tenderness, no CVA tenderness. [] Extremities: No tenderness, no cyanosis, no clubbing, ROM intact, no edema. [] Neurologic: Alert and oriented X 3, normal motor function, normal sensory function, no focal deficits noted. [] Psychologic: Affect normal, judgement normal, mood normal. [] Current Patient Data: Labs: Laboratory Tests Test 01/18/21 16:40 White Blood Count 6.6 x10^3/uL (4.0-11.0) Red Blood Count 4.29 x10^6/uL (3.50-5.40) Hemoglobin 13.8 g/dL (12.0-15.5) Hematocrit 40.2 % (36.0-47.0) Mean Corpuscular Volume 94 fL (79-100) Mean Corpuscular Hemoglobin 32 pg (25-35) Mean Corpuscular Hemoglobin Concent 34 g/dL (31-37) Red Cell Distribution Width 12.1 % (11.5-14.5) Platelet Count 145 x10^3/uL (140-400) Neutrophils (%) (Auto) 46 % (31-73) Lymphocytes (%) (Auto) 44 % (24-48) Monocytes (%) (Auto) 8 % (0-9) Eosinophils (%) (Auto) 2 % (0-3) Basophils (%) (Auto) 1 % (0-3) Neutrophils # (Auto) 3.1 x10^3uL (1.8-7.7) Lymphocytes # (Auto) 2.9 x10^3/uL (1.0-4.8) Monocytes # (Auto) 0.5 x10^3/uL (0.0-1.1) Eosinophils # (Auto) 0.1 x10^3/uL (0.0-0.7) Basophils # (Auto) 0.1 x10^3/uL (0.0-0.2) Urine Collection Type Unknown Urine Color Yellow Urine Clarity Clear Urine pH 6.5 Urine Specific [place] <=1.005 Urine Protein Neg (NEG-TRACE) Urine Glucose (UA) Neg mg/dL (NEG) Urine Ketones (Stick) Neg mg/dL (NEG) Urine Blood Neg (NEG) Urine Nitrite Neg (NEG) Urine Bilirubin Neg (NEG) Urine Urobilinogen Dipstick 0.2 mg/dL (0.2 mg/dL) Urine Leukocyte Esterase Neg (NEG) Urine RBC 0 /HPF (0-2) Urine WBC 0 /HPF (0-4) Urine Squamous Epithelial Cells Occ /LPF Urine Bacteria 0 /HPF (0-FEW) Sodium Level 139 mmol/L (136-145) Potassium Level 3.7 mmol/L (3.5-5.1) Chloride Level 105 mmol/L (98-107) Carbon Dioxide Level 27 mmol/L (21-32) Anion Gap 7 (6-14) Blood Urea Nitrogen 9 mg/dL (7-20) Creatinine 0.6 mg/dL (0.6-1.0) Estimated GFR (Cockcroft-Gault) 111.9 BUN/Creatinine Ratio 15 (6-20) Glucose Level 95 mg/dL (70-99) Calcium Level 8.9 mg/dL (8.5-10.1) Total Bilirubin Pending Aspartate Amino Transferase (AST) Pending Alanine Aminotransferase (ALT) Pending Alkaline Phosphatase Pending Total Protein Pending Albumin Pending Albumin/Globulin Ratio Pending Vital Signs: Vital Signs Date Time Temp Pulse Resp B/P (MAP) Pulse Ox O2 Delivery O2 Flow Rate FiO2 01/18/21 17:17 80 18 98/58 (71) 96 Room Air 01/18/21 16:27 98.1 EKG: EKG: [] Radiology/Procedures: Radiology/Procedures: []EXAMINATION: XR CHEST 1V CLINICAL HISTORY: Chest pain EXAM DATE/TIME: 01/18/2021 4:55 PM COMPARISON: 08/16/2020 FINDINGS: Lines, Tubes, and Devices: None. Cardiomediastinal Silhouette: Within normal limits. Lungs and Pleura: No evidence of focal airspace consolidation or pleural effusion. Pulmonary vasculature unremarkable. Bones and Soft Tissues: No acute osseous abnormality. IMPRESSION: No evidence of acute cardiopulmonary abnormality or significant interval change. Electronically signed by: Ayan Beck DO (01/18/2021 5:18 PM) [facility] EXAMINATION: CT ABDOMEN W/O CONTRAST (CT ABDOMEN/PELVIS WITHOUT IV CONTRAST) CLINICAL HISTORY: Right lower quadrant pain TECHNIQUE: Non-IV contrast imaging of the abdomen and pelvis was performed using standard technique, scanning from just above the dome of the diaphragm to the symphysis pubis. Unenhanced imaging is limited for the evaluation of some intra-abdominal and pelvic pathology. CT Dose Reduction Employed: One or more of the following individualized dose reduction techniques were utilized for this examination: 1. Automated exposure control 2. Adjustment of the mA and/or kV according to patient size 3. Use of iterative reconstruction technique. COMPARISON: 05/11/2020 FINDINGS: Minimal bibasilar dependent subsegmental atelectasis. Liver, gallbladder, pancreas, spleen, adrenal glands, and kidneys unremarkable. Nondiagnostic evaluation of the nondistended urinary bladder. Ringlike hyperdensity in the region of the vagina, possibly a contraceptive device and similar in appearance on prior study. No significant pelvic free fluid. No dilated bowel. Appendix not definitively visualized on limited noncontrast ev aluation with crowded loops of minimally distended bowel in a patient with thin body habitus. No abdominal aortic or iliac artery aneurysm. No evidence of acute osseous abnormality. IMPRESSION: No definitive evidence of acute abdominopelvic abnormality. Nonvisualized appendix limited evaluation as described. Electronically signed by: Ayan Beck DO (01/18/2021 5:30 PM) [facility] Study: XR BILATERAL HIP (WITH OR WITHOUT PELVIS) 2 VIEWS_RIGHT Indication: Right hip pain. Comparison: Same day CT abdomen/pelvis Findings: Hip joint space height is maintained. No radiographic findings to suggest avascular necrosis. Unremarkable pubic symphysis and sacroiliac joints. Suture chain projects in the anorectal region. Impression: No acute osseous abnormality or significant arthrosis. Electronically signed by: DEVENDRA KENDALL MD (01/18/2021 6:12 PM) [facility] Heart Score: C/O Chest Pain: No Risk Factors: Risk Factors: DM, Current or recent (<one month) smoker, HTN, HLP, family history of CAD, obesity. Risk Scores: Score 0 - 3: 2.5% MACE over next 6 weeks - Discharge Home Score 4 - 6: 20.3% MACE over next 6 weeks - Admit for Clinical Observation Score 7 - 10: 72.7% MACE over next 6 weeks - Early Invasive Strategies Course & Med Decision Making: Course & Med Decision Making Pertinent Labs and Imaging studies reviewed. (See chart for details) [] Patient presents emergency room with right lower quadrant pain that radiates to her right flank. CT abdomen pelvis to rule out appendicitis, kidney stone, ovarian torsion. Chest x-ray was negative for acute abnormalities. UA is negative for infection. Patient is very tender on physical exam on right lower quadrant. Patient given morphine and Zofran for pain control. CT of abdomen and pelvis is negative for any acute abnormalities. X-ray of hip and pelvis was negative. Advised patient needs to follow-up with her GI doctor or PCP for further management of her chronic abdominal pain symptoms. Patient to take ibuprofen and Tylenol at home for discomfort. Patient is hemodynamically stable and able to ambulate on her own at the emergency room. Patient is appreciative and okay with discharge plan. Isaac Disclaimer: Isaac Disclaimer: This electronic medical record was generated, in whole or in part, using a voice recognition dictation system. Departure Departure: Impression: Primary Impression: Abdominal pain Qualified Codes: R10.31 - Right lower quadrant pain Disposition: HOME / SELF CARE / HOMELESS Condition: STABLE Referrals: ROBERT LUTZ (PCP) Patient Instructions: Abdominal Pain Additional Instructions: You were seen in the emergency room for right lower quadrant abdominal pain. All of your lab work was unremarkable. Your CT of your abdomen and pelvis was negative for any acute abnormalities. Please follow-up with your PCP or GI doctor for further management. Return to the emergency room worsening symptoms or concerns. EMERGENCY DEPARTMENT GENERAL DISCHARGE INSTRUCTIONS Thank you for coming to [facility] (ED) today and trusting us with you care. We trust that you had a positivie experience in our Emergency Department. If you wish to speak to the department management, you may call the director at [phone]. YOUR FOLLOW UP INSTRUCTIONS ARE FOLLOWS: 1. Do you have a private Doctor? If you do not have a private doctor, please ask for a resource list of physicians or clinics that may be able to assist you with follow up care. 2. The Emergency Physician has interpreted your x-rays. The X-Ray specialist will also review them. If there is a change in the findings, you will be notified in 48 hours when at all possible. 3. A lab test or culture has been done, your results will be reviewed and you will be notified if you need a change in treatment. ADDITIONAL INSTRUCTIONS AND INFORMATION: 1. Your care today has been supervised by a physician who is specially trained in emergency care. Many problems require more than one evaluation for a complete diagnosis and treatment. We recommend that you schedule your follow up appointment as recommended to ensure complete treatment of you illness or injury. If you are unable to obtain follow up care and continue to have a problem, or if your condition worsens, we recommend that you return to the ED. 2. We are not able to safely determine your condition over the phone nor are we able to give sound medical advice over the phone. For these safety reasons, if you call for medical advice we will ask you to come to the ED for further evaluation. 3. If you have any questions regarding these discharge instructions please call the ED at [phone]. SAFETY INFORMATION: In the interest of safety, wellness, and injury prevention; we encourage you to wear your sealbelt, if you smoke; quite smoking, and we encourage family to use a protective helmet for bicycling and other sporting events that present an increased risk for head injury. IF YOUR SYMPTOMS WORSEN OR NEW SYMPTOMS DEVELOP, OR YOU HAVE CONCERNS ABOUT YOUR CONDITION; OR IF YOUR CONDITION WORSENS WHILE YOU ARE WAITING FOR YOUR FOLLOW UP A PPOINTMENT; EITHER CONTACT YOUR PRIMARY CARE DOCTOR, THE PHYSICIAN WHOSE NAME AND NUMBER YOU WERE GIVEN, OR RETURN TO THE ED IMMEDIATELY. LISY MORRISSEY APRN January 18, 2021 17:31
--- NOTE | 2021-01-18 18:15 | RAD ---
Study: XR BILATERAL HIP (WITH OR WITHOUT PELVIS) 2 VIEWS_RIGHT Indication: Right hip pain. Comparison: Same day CT abdomen/pelvis Findings: Hip joint space height is maintained. No radiographic findings to suggest avascular necrosis. Unremar kable pubic symphysis and sacroiliac joints. Suture chain projects in the anorectal region. Impression: No acute osseous abnormality or significant arthrosis. Electronically signed by: DEVENDRA KENDALL MD (01/18/2021 6:12 PM) [facility]
[2021-01-18 18:33] VITALS: BP 111/60
== END 2021-01-18 18:36 | disposition home or self-care (01) ==
LOC: ER 16:17
DX: R10.32 Left lower quadrant pain (principal); R19.7 Diarrhea, unspecified; R11.0 Nausea; M25.551 Pain in right hip; F41.9 Anxiety disorder, unspecified; K21.9 Gastro-esophageal reflux disease without esophagitis; Z90.710 Acquired absence of both cervix and uterus; Z98.51 Tubal ligation status; Z91.040 Latex allergy status; Z88.8 Allergy status to other drugs, medicaments and biological substances
CPT/HCPCS: 36415; 71045; 73502; 74150; 80053; 81001; 85025; 96361; 96374; 96375; 96376; 99285; J2270; J2405; J7030

== ENCOUNTER 2021-06-13 08:38 | Emergency (ER) | payer OTHER ==
[~2021-06-13] VITALS: Ht 157.5 cm; Wt 41.3 kg
--- NOTE | 2021-06-13 08:58 | EKG ---
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
--- NOTE | 2021-06-13 09:06 | PHYS DOC ---
Past History Past Medical History: Anxiety, Endometriosis, GERD Additional Past Medical Histor: endometriosis Past Surgical History: Hysterectomy, Oophorectomy, Tubal ligation Additional Past Surgical Histo: umbilical hernia repair with mesh placed; surgery for endometriosis Alcohol Use: Rarely Drug Use: None General Adult EDM: Chief Complaint: CHEST PAIN HPI: HPI: 40-year-old female presents with chest pain. She is extremely anxious and tearful. She states that she just got out of a psychiatric facility recently. She has been taking all of her medications except she did not get her trazodone filled. She has been on this for 12 days. She did not have any last night. When she woke up this morning she was feeling very overwhelmed and anxious. She was having some central chest discomfort which she describes as a sharp cramping sensation that comes and goes. She has felt a little bit short of breath but admits that she is breathing fast due to her anxiety. She does not have anything in particular that she is worried about, she is just worried and anxious. No history of cardiac problems. She denies fever or chills. Review of Systems: Review of Systems: Constitutional: Denies fever or chills Eyes: Denies change in visual acuity HENT: Denies nasal congestion or sore throat Respiratory: Denies cough or shortness of breath Cardiovascular: Denies chest pain or edema GI: Denies abdominal pain, nausea, vomiting, bloody stools or diarrhea : Denies dysuria Musculoskeletal: Denies back pain or joint pain Integument: Denies rash Neurologic: Denies headache, focal weakness or sensory changes Endocrine: Denies polyuria or polydipsia Lymphatic: Denies swollen glands Psychiatric: Denies depression or anxiety Allergies: Allergies: Allergies Coded Allergies Type Severity Reaction Last Updated Verified adhesive Allergy Unknown 05/11/20 Yes latex Allergy Unknown 05/11/20 Yes Physical Exam: PE: Constitutional: Well developed, well nourished, thin, acute emotional distress, non-toxic appearance. [] HENT: Normocephalic, atraumatic, bilateral external ears normal, oropharynx moist, no oral exudates, nose normal. [] Eyes: PERRLA, EOMI, conjunctiva normal, no discharge. [] Neck: Normal range of motion, no tenderness, supple, no stridor. [] Cardiovascular: Heart rate 107, regular rhythm, no murmur [] Lungs & Thorax: Bilateral breath sounds clear to auscultation [] Abdomen: Bowel sounds normal, soft, no tenderness, no masses, no pulsatile masses. [] Skin: Warm, dry, no erythema, no rash. [] Back: No tenderness, no CVA tenderness. [] Extremities: No tenderness, no cyanosis, no clubbing, ROM intact, no edema. [] Neurologic: Alert and oriented X 3, normal motor function, normal sensory function, no focal deficits noted. [] Psychologic: Affect normal, judgement normal, mood very anxious. [] EKG: EKG: Sinus rhythm, rate 107, normal axis, no ST elevation or depression. [] Radiology/Procedures: Radiology/Procedures: [] Impressions: XR CHEST 1V 06/13/2021 9:01 AM INDICATION: Chest pain COMPARISON: 01/18/2021 TECHNIQUE: Portable frontal view of the chest is provided. FINDINGS: The cardiomediastinal silhouette is within normal limits. Lungs are clear. There are no significant pleural effusions. There is no pulmonary vascular congestion. No pneumothorax. No suspicious osseous abnormality. IMPRESSION: There is no acute cardiopulmonary process. Electronically signed by: Uvaldo Fitzgerald MD (06/13/2021 9:48 AM) [facility] DICTATED AND SIGNED BY: UVALDO FITZGERALD MD DATE: 06/13/21947 CC: RIKI BUCKNER DO; ROBERT LUTZ ~MTH0 0 Heart Score: C/O Chest Pain: Yes HEART Score for Chest Pain: HEART Score for Chest Pain Response (Comments) Value History Slighlty/Non-Suspicious 0 ECG Normal 0 Age < 45 0 Risk Factors No Risk Factors 0 Troponin < Normal Limit 0 Total 0 Risk Factors: Risk Factors: DM, Current or recent (<one month) smoker, HTN, HLP, family history of CAD, obesity. Risk Scores: Score 0 - 3: 2.5% MACE over next 6 weeks - Discharge Home Score 4 - 6: 20.3% MACE over next 6 weeks - Admit for Clinical Observation Score 7 - 10: 72.7% MACE over next 6 weeks - Early Invasive Strategies Course & Med Decision Making: Course & Med Decision Making Pertinent Labs and Imaging studies reviewed. (See chart for details) The patient is very emotionally upset. I reassured her multiple times that she was in a safe place and that we would take care of her. She does not fully understand why she is so emotional. She appears to be having severe anxiety at this time. I have ordered 2 mg of Ativan IV. EKG is unremarkable except for slightly elevated heart rate of 107. I believe this is likely due to her emotional state. The patient's labs are unremarkable. Her chest x-ray is unremarkable. Her troponin is negative. The patient is medically stable for discharge at this time. [] Dragon Disclaimer: Dragon Disclaimer: This electronic medical record was generated, in whole or in part, using a voice recognition dictation system. Departure Departure: Impression: Primary Impression: Anxiety about health Additional Impression: Chest pain Qualified Codes: R07.89 - Other chest pain Disposition: 01 HOME / SELF CARE / HOMELESS Condition: STABLE Referrals: ROBERT LUTZ (PCP) Patient Instructions: Anxiety and Panic Attacks, [id number], Chest Pain (Nonspecific), [id number] RIKI BUCKNER DO Jun 13, 2021 09:06
[2021-06-13 09:19] LABS: BASO % 1 % (0-3); EOS # 0.1 x10^3/uL (0.0-0.7); EOS % 2 % (0-3); HEMATOCRIT 42.6 % (36.0-47.0); HEMOGLOBIN 14.6 g/dL (12.0-15.5); LYMPH # 2.9 x10^3/uL (1.0-4.8); LYMPH % 38 % (24-48); MEAN CORPUSCULAR HEMOGLOBIN 31 pg (25-35); MEAN CORPUSCULAR HGB CONC 34 g/dL (31-37); MEAN CORPUSCULAR VOLUME 91 fL (79-100); MONO # 0.6 x10^3/uL (0.0-1.1); MONO % 8 % (0-9); NEUT # 3.9 x10^3uL (1.8-7.7); NEUT % 52 % (31-73); PLATELET COUNT 177 x10^3/uL (140-400); RED BLOOD COUNT 4.67 x10^6/uL (3.50-5.40); WHITE BLOOD COUNT 7.5 x10^3/uL (4.0-11.0)
[2021-06-13 09:42] VITALS: BP 95/65
[2021-06-13 09:45] LABS: CALCIUM 9.4 mg/dL (8.5-10.1); CREATININE 0.5 mg/dL (0.6-1.0); GFR 138.1; POTASSIUM 4.2 mmol/L (3.5-5.1)
--- NOTE | 2021-06-13 09:51 | RAD ---
XR CHEST 1V 06/13/2021 9:01 AM INDICATION: Chest pain COMPARISON: 01/18/2021 TECHNIQUE: Portable frontal view of the chest is provided. FINDINGS: The cardiomediastinal silhouette is within normal limits. Lungs are clear. There are no significant pleural effusions. There is no pulmonary vascular congestion. No pneumothora x. No suspicious osseous abnormality. IMPRESSION: There is no acute cardiopulmonary process. Electronically signed by: Yancy Fitzgerald MD (06/13/2021 9:48 AM) [facility]
[2021-06-13 09:52] LABS: ALBUMIN 4.2 g/dL (3.4-5.0); ALBUMIN/GLOBULIN RATIO 1.3 (1.0-1.7); TOTAL BILIRUBIN 0.2 mg/dL (0.2-1.0); TOTAL PROTEIN 7.5 g/dL (6.4-8.2)
== END 2021-06-13 10:10 | disposition home or self-care (01) ==
LOC: ER 08:38
DX: F41.9 Anxiety disorder, unspecified (principal); R07.89 Other chest pain; K21.9 Gastro-esophageal reflux disease without esophagitis; Z88.8 Allergy status to other drugs, medicaments and biological substances; Z91.040 Latex allergy status
CPT/HCPCS: 36415; 71045; 80053; 84484; 85025; 93005; 96374; 99285; J2060

== ENCOUNTER 2021-08-12 21:38 | Emergency (ER) | payer OTHER ==
[~2021-08-12] VITALS: Ht 157.5 cm; Wt 42.9 kg
--- NOTE | 2021-08-12 21:59 | PHYS DOC ---
Past History Past Medical History: Anxiety, Endometriosis, GERD Additional Past Medical Histor: endometriosis, [place] diseasa, PTSD Past Surgical History: Hysterectomy, Oophorectomy, Tubal ligation Additional Past Surgical Histo: umbilical hernia repair with mesh placed; surgery for endometriosis Alcohol Use: Rarely Drug Use: None Adult General Chief Complaint Chief Complaint: ABDOMINAL PAIN HPI HPI Patient is a 41-year-old female with a past medical history significant for chronic abdominal pain who presents with abdominal pain. States she has been having right flank/right lower quadrant pain for the last day, dull and achy in nature, 6 out of 10, with no radiation. Denies recent travel, traumas, illnesses, fevers, chest pain, shortness of breath, nausea, vomiting, diarrhea, dysuria, hematuria, blood in the stool. Denies any vaginal bleeding, discharge, pain or history of STIs. Review of Systems Review of Systems This systems otherwise unremarkable except noted in HPI Allergies Allergies Allergies Coded Allergies Type Severity Reaction Last Updated Verified adhesive Allergy Unknown 05/11/20 Yes latex Allergy Unknown 05/11/20 Yes Physical Exam Physical Exam Constitutional: Well developed, well nourished, no acute distress, non-toxic appearance. [] HENT: Normocephalic, atraumatic, bilateral external ears normal, oropharynx moist, no oral exudates, nose normal. [] Eyes: conjunctiva normal, no discharge. [] Neck: Normal range of motion, no tenderness, supple, no stridor. [] Cardiovascular:Heart rate regular rhythm, no murmur [] Lungs & Thorax: Bilateral breath sounds clear to auscultation [] Abdomen: soft, generalized tenderness, no rebound, no guarding no masses, no pulsatile masses. [] Skin: Warm, dry, no erythema, no rash. [] Back: no CVA tenderness. [] Extremities: No tenderness, no cyanosis, no clubbing, ROM intact, no edema. [] Neurologic: Alert and oriented X 3, normal motor function, normal sensory function, no focal deficits noted. [] Psychologic: Affect normal, judgement normal, mood normal. [] EKG EKG [] Radiology/Procedures Radiology/Procedures []Exam: CT of abdomen and pelvis without contrast INDICATION: Right flank pain for one day TECHNIQUE: Sequential axial images through the abdomen and pelvis obtained without IV contrast. Sagittal and coronal reformatted images were reconstructed from the axial data and reviewed. Exposure: One or more of the following in the visualized dose reduction techniques were utilized for this examination: 1. Automated exposure control 2. Adjustment of the MA and/or KV according to patient size 3. Use of iterative of reconstructive technique Comparisons: 05/11/2020 FINDINGS: Heart size is normal. No pericardial effusion. Visualized lung bases are clear. No effusion. Evaluation of solid organs is limited secondary to noncontrast technique. Liver, spleen, pancreas, gallbladder and adrenals are unremarkable. No perinephric inflammation or hydronephrosis. No renal or ureteral calculi are identified. Bladder is decompressed not well evaluated. No abnormal adnexal mass. Postoperative changes at the rectum. Moderate amount of stool is noted in the ce cum. Normal appearance of the appendix. Small bowel is unremarkable. No free intra-abdominal air or fluid. No obstruction. Abdominal aorta has normal course and caliber. No enlarged intra-abdominal lymph nodes are identified. No suspicious osseous lesions or acute fractures. IMPRESSION: 1. No renal or ureteral calculi. No evidence for obstructive uropathy. 2. No acute process identified in the abdomen or pelvis. Heart Score C/O Chest Pain: No Risk Factors: Risk Factors: DM, Current or recent (<one month) smoker, HTN, HLP, family history of CAD, obesity. Risk Scores: Risk Factors: DM, Current or recent (<one month) smoker, HTN, HLP, family history of CAD, obesity. Course & Med Decision Making Course & Med Decision Making Patient is a 41-year-old female who presents with abdominal pain Vital signs notable for intermittent tachycardia but otherwise unremarkable. Physical exam noted above. Patient given pain medication which resolved her pain. Laboratory analysis not concerning. CT of the abdomen not concerning. On reassessment patient feeling better and ready to be discharged home. Discussed all findings with patient and recommended following up in the morning with her primary care physician. Recommended symptomatic treatment at home. Advised to come back with new or concerning symptoms. Patient grateful, verbalized understanding and agreed with plan of discharge. Dragon Disclaimer Dragon Disclaimer This electronic medical record was generated, in whole or in part, using a voice recognition dictation system. Departure Departure: Impression: Primary Impression: Abdominal pain Disposition: HOME / SELF CARE / HOMELESS Condition: GOOD Referrals: ROBERT LUTZ (PCP) Patient Instructions: Abdominal Pain Additional Instructions: Thank you for coming into the emergency department tonight and allowing us to take care of you. Please read the attached information carefully to go back over some of the things we discussed. Please eat a light clear diet over the next couple of days as we discussed. Please follow-up in the morning with your primary care physician to discuss your ED visit and set up a follow-up when you can. Please come back with new or concerning symptoms as we discussed. ABIGAIL WEAVER MD Aug 12, 2021 21:59
[2021-08-12 22:00] VITALS: BP 102/61
[2021-08-12] MEDS ORDERED: DICYCLOMINE HCL 20 MG TABLET PO ONE (22:00)
[2021-08-12 22:19] LABS: BASO # 0.1 x10^3/uL (0.0-0.2); BASO % 1 % (0-3); EOS # 0.2 x10^3/uL (0.0-0.7); EOS % 2 % (0-3); HEMATOCRIT 39.1 % (36.0-47.0); HEMOGLOBIN 13.2 g/dL (12.0-15.5); LYMPH # 3.4 x10^3/uL (1.0-4.8); LYMPH % 30 % (24-48); MEAN CORPUSCULAR HEMOGLOBIN 31 pg (25-35); MEAN CORPUSCULAR HGB CONC 34 g/dL (31-37); MEAN CORPUSCULAR VOLUME 93 fL (79-100); MONO % 9 % (0-9); NEUT # 6.7 x10^3uL (1.8-7.7); NEUT % 59 % (31-73); PLATELET COUNT 181 x10^3/uL (140-400); RED CELL DISTRIBUTION WIDTH 13.1 % (11.5-14.5); WHITE BLOOD COUNT 11.3 x10^3/uL (4.0-11.0)
[2021-08-12 22:26] LABS: CALCIUM 8.6 mg/dL (8.5-10.1); CREATININE 0.9 mg/dL (0.6-1.0); GFR 69.7
[2021-08-12 22:28] LABS: BACTERIA,URINE 0 /HPF (0-FEW); BILIRUBIN,URINE NEG (NEG); CLARITY,URINE CLEAR; COLOR,URINE YELLOW; GLUCOSE,URINE NEG (NEG); NITRITE,URINE NEG (NEG); RBC,URINE 0 /HPF (0-2); SQUAMOUS EPITHELIAL CELL,UR FEW /LPF; UROBILINOGEN,URINE 0.2 mg/dL (0.2 mg/dL); WBC,URINE OCC /HPF (0-4)
--- NOTE | 2021-08-12 22:28 | RAD ---
Exam: CT of abdomen and pelvis without contrast INDICATION: Right flank pain for one day TECHNIQUE: Sequential axial images through the abdomen and pelvis obtained without IV contrast. Sagit hortencia and coronal reformatted images were reconstructed from the axial data and reviewed. Exposure: One or more of the following in the visualized dose reduction techniques were utilized for this examination: 1. Automated exposure control 2. Adjustment of the MA and/or KV according to patient size 3. Use of iterative of reconstructive technique Comparisons: 05/11/2020 FINDINGS: Heart size is normal. No pericardial effusion. Visualized lung bases are clear. No effusion. Evaluation of solid organs is limited secondary to noncontrast technique. Liver, spleen, pancreas, gallbladder and adrenals are unremarkable. No perinephric inflammation or hydronephrosis. No renal or ureteral calculi are identified. Bladder is decompressed not well evaluated. No abnormal adnexal mass. Postoperative changes at the rectum. Moderate amount of stool is noted in the cecum. Normal appearanc e of the appendix. Small bowel is unremarkable. No free intra-abdominal air or fluid. No obstruction. Abdominal aorta has normal course and caliber. No enlarged intra-abdominal lymph nodes are identified. No suspicious osseous lesions or acute fractures. IMPRESSION: 1. No renal or ureteral calculi. No evidence for obstructive uropathy. 2. No acute process identified in the abdomen or pelvis. Electronically signed by: Jean Carlos Chamberlain MD (08/12/2021 10:26 PM) [facility]
[2021-08-12 22:32] LABS: ALBUMIN 3.9 g/dL (3.4-5.0); ALBUMIN/GLOBULIN RATIO 1.3 (1.0-1.7); TOTAL BILIRUBIN 0.2 mg/dL (0.2-1.0)
[2021-08-12] MEDS ORDERED: LIDO:MAALOX 1:1 20 ML SINGLE DOSE. PO ONE (23:00)
== END 2021-08-12 23:30 | disposition home or self-care (01) ==
LOC: ER 21:38
DX: R10.31 Right lower quadrant pain (principal); K21.9 Gastro-esophageal reflux disease without esophagitis; Z90.710 Acquired absence of both cervix and uterus; Z91.040 Latex allergy status; Z98.51 Tubal ligation status
CPT/HCPCS: 36415; 74176; 80053; 81001; 83690; 85025; 96374; 99284; J3010

== ENCOUNTER 2021-08-25 17:51 | Emergency (ER) | payer OTHER ==
[~2021-08-25] VITALS: Ht 157.5 cm; Wt 42.9 kg
[2021-08-25 18:23] LABS: BASO # 0.1 x10^3/uL (0.0-0.2); BASO % 1 % (0-3); EOS # 0.1 x10^3/uL (0.0-0.7); EOS % 1 % (0-3); HEMATOCRIT 40.9 % (36.0-47.0); HEMOGLOBIN 14.1 g/dL (12.0-15.5); LYMPH # 2.5 x10^3/uL (1.0-4.8); LYMPH % 27 % (24-48); MEAN CORPUSCULAR HEMOGLOBIN 32 pg (25-35); MEAN CORPUSCULAR HGB CONC 35 g/dL (31-37); MEAN CORPUSCULAR VOLUME 93 fL (79-100); MONO # 0.9 x10^3/uL (0.0-1.1); MONO % 10 % (0-9); NEUT # 5.7 x10^3uL (1.8-7.7); NEUT % 62 % (31-73); PLATELET COUNT 195 x10^3/uL (140-400); RED BLOOD COUNT 4.39 x10^6/uL (3.50-5.40); RED CELL DISTRIBUTION WIDTH 12.8 % (11.5-14.5); WHITE BLOOD COUNT 9.2 x10^3/uL (4.0-11.0)
[2021-08-25] MEDS ORDERED: IV NORMAL SALINE 1,000ML 1,000 ML IV ONE (18:30)
[2021-08-25] MEDS ORDERED: ONDANSETRON PF 4 MG/2 ML VIAL. IVP ONE (18:30)
[2021-08-25 18:32] LABS: CALCIUM 8.9 mg/dL (8.5-10.1); CREATININE 0.7 mg/dL (0.6-1.0); GFR 93.2; POTASSIUM 3.9 mmol/L (3.5-5.1)
[2021-08-25 18:38] LABS: ALBUMIN 4.1 g/dL (3.4-5.0); ALBUMIN/GLOBULIN RATIO 1.2 (1.0-1.7); TOTAL BILIRUBIN 0.5 mg/dL (0.2-1.0); TOTAL PROTEIN 7.4 g/dL (6.4-8.2)
[2021-08-25 18:43] LABS: BACTERIA,URINE 0 /HPF (0-FEW); BILIRUBIN,URINE NEG (NEG); CLARITY,URINE CLEAR; COLOR,URINE YELLOW; GLUCOSE,URINE NEG (NEG); NITRITE,URINE NEG (NEG); RBC,URINE 0 /HPF (0-2); SQUAMOUS EPITHELIAL CELL,UR FEW /LPF; UROBILINOGEN,URINE 0.2 mg/dL (0.2 mg/dL); WBC,URINE RARE /HPF (0-4)
[2021-08-25] MEDS ORDERED: diphenhydrAMINE 50 MG/ML VIAL IVP ONE (19:15)
[2021-08-25] MEDS ORDERED: METOCLOPRAMIDE HCL 10 MG/2 ML VIAL. IVP ONE (19:15)
--- NOTE | 2021-08-25 19:34 | PHYS DOC ---
Past History Past Medical History: Anxiety, Endometriosis, GERD Additional Past Medical Histor: endometriosis, [place] diseasa, PTSD (EDMUNDO BERNAL APRN) Past Surgical History: Hysterectomy, Oophorectomy, Tubal ligation, Other Additional Past Surgical Histo: Hernia with mesh placement (EDMUNDO BERNAL WASTEWATER SUPERINTENDENT) Alcohol Use: None Drug Use: None (EDMUNDO BERNAL APRN) General Adult EDM: Chief Complaint: ABDOMINAL PAIN HPI: HPI: Is a 41-year-old female that presents today with right upper quadrant abdominal pain. Patient states her pain started around , patient was seen here in the emergency department on , CT scan and labs were done, which showed possible gallbladder disease. Patient states she is followed up with her primary care physician, she saw Dr. Coyle with gastrointestinal, and he evaluated her and has ordered a gallbladder ultrasound and a nuclear scan to evaluate gallbladder function. Patient presents today with increased abdominal pain, and nausea and vomiting. Patient states she normally takes oxycodone 5 mg, 3 times a day for chronic abdominal pain, patient also states Zofran as needed for nausea chronically as she states that that has not been helping at home. did produce the order for the gallbladder ultrasound and the nuclear scan it is scheduled to be done on September [id number]. Patient states she also takes Pepcid, and does not feel that is helping with her stomach pain at all either (EDMUNDO BERNAL WASTEWATER SUPERINTENDENT) Review of Systems: Review of Systems: Constitutional: Denies fever or chills Eyes: Denies change in visual acuity HENT: Denies nasal congestion or sore throat Respiratory: Denies cough or shortness of breath Cardiovascular: Denies chest pain or edema GI: Denies abdominal pain, nausea, vomiting, bloody stools or diarrhea : Denies dysuria Musculoskeletal: Denies back pain or joint pain Integument: Denies rash Neurologic: Denies headache, focal weakness or sensory changes Endocrine: Denies polyuria or polydipsia Lymphatic: Denies swollen glands Psychiatric: Denies depression or anxiety (EDMUNDO BERNAL WASTEWATER SUPERINTENDENT) Current Medications: Current Meds: Current Medications Medications (Trade) Dose Ordered Sig/Angelita Start Time Stop Time Status Last Admin Dose Admin Diphenhydramine HCl (Benadryl) 50 mg 1X ONCE 08/25/21 19:15 08/25/21 19:16 DC 08/25/21 19:15 50 MG Fentanyl Citrate (Fentanyl 2ml Vial) 75 mcg 1X ONCE 08/25/21 18:30 08/25/21 18:31 DC 08/25/21 19:25 75 MCG Metoclopramide HCl (Reglan Vial) 10 mg 1X ONCE 08/25/21 19:15 08/25/21 19:16 DC 08/25/21 19:15 10 MG Ondansetron HCl (Zofran) 4 mg 1X ONCE 08/25/21 18:30 08/25/21 18:31 DC 08/25/21 18:38 4 MG Sodium Chloride 1,000 ml @ 1,000 mls/hr 1X ONCE 08/25/21 18:30 08/25/21 19:29 DC 08/25/21 18:38 1,000 MLS/HR (EDMUNDO BERNAL APRN) Allergies: Allergies: Allergies Coded Allergies Type Severity Reaction Last Updated Verified adhesive Allergy Unknown 08/25/21 Yes latex Allergy Unknown 08/25/21 Yes (EDMUNDO BERNAL APRN) Physical Exam: PE: Constitutional: Well developed, well nourished, no acute distress, non-toxic appearance. [] HENT: Normocephalic, atraumatic, bilateral external ears normal, oropharynx moist, no oral exudates, nose normal. [] Eyes: PERRLA, EOMI, conjunctiva normal, no discharge. [] Neck: Normal range of motion, no tenderness, supple, no stridor. [] Cardiovascular:Heart rate regular rhythm, no murmur [] Lungs & Thorax: Bilateral breath sounds clear to auscultation [] Abdomen: Bowel sounds normal, soft, no tenderness, no masses, no pulsatile masses. [] Skin: Warm, dry, no erythema, no rash. [] Back: No tenderness, no CVA tenderness. [] Extremities: No tenderness, no cyanosis, no clubbing, ROM intact, no edema. [] Neurologic: Alert and oriented X 3, normal motor function, normal sensory function, no focal deficits noted. [] Psychologic: Affect normal, judgement normal, mood normal. [] (EDMUNDO BERNAL APRN) Current Patient Data: Labs: Laboratory Tests Test 08/25/21 18:00 08/25/21 18:15 White Blood Count 9.2 x10^3/uL (4.0-11.0) Red Blood Count 4.39 x10^6/uL (3.50-5.40) Hemoglobin 14.1 g/dL (12.0-15.5) Hematocrit 40.9 % (36.0-47.0) Mean Corpuscular Volume 93 fL (79-100) Mean Corpuscular Hemoglobin 32 pg (25-35) Mean Corpuscular Hemoglobin Concent 35 g/dL (31-37) Red Cell Distribution Width 12.8 % (11.5-14.5) Platelet Count 195 x10^3/uL (140-400) Neutrophils (%) (Auto) 62 % (31-73) Lymphocytes (%) (Auto) 27 % (24-48) Monocytes (%) (Auto) 10 % (0-9) H Eosinophils (%) (Auto) 1 % (0-3) Basophils (%) (Auto) 1 % (0-3) Neutrophils # (Auto) 5.7 x10^3uL (1.8-7.7) Lymphocytes # (Auto) 2.5 x10^3/uL (1.0-4.8) Monocytes # (Auto) 0.9 x10^3/uL (0.0-1.1) Eosinophils # (Auto) 0.1 x10^3/uL (0.0-0.7) Basophils # (Auto) 0.1 x10^3/uL (0.0-0.2) Sodium Level 142 mmol/L (136-145) Potassium Level 3.9 mmol/L (3.5-5.1) Chloride Level 104 mmol/L (98-107) Carbon Dioxide Level 26 mmol/L (21-32) Anion Gap 12 (6-14) Blood Urea Nitrogen 8 mg/dL (7-20) Creatinine 0.7 mg/dL (0.6-1.0) Estimated GFR (Cockcroft-Gault) 93.2 BUN/Creatinine Ratio 11 (6-20) Glucose Level 107 mg/dL (70-99) H Calcium Level 8.9 mg/dL (8.5-10.1) Total Bilirubin 0.5 mg/dL (0.2-1.0) Aspartate Amino Transferase (AST) 15 U/L (15-37) Alanine Aminotransferase (ALT) 24 U/L (14-59) Alkaline Phosphatase 55 U/L (46-116) Total Protein 7.4 g/dL (6.4-8.2) Albumin 4.1 g/dL (3.4-5.0) Albumin/Globulin Ratio 1.2 (1.0-1.7) Lipase 167 U/L (73-393) Urine Collection Type Unknown Urine Color Yellow Urine Clarity Clear Urine pH 7.0 Urine Specific [place] 1.020 Urine Protein Neg (NEG-TRACE) Urine Glucose (UA) Neg mg/dL (NEG) Urine Ketones (Stick) Neg mg/dL (NEG) Urine Blood Neg (NEG) Urine Nitrite Neg (NEG) Urine Bilirubin Neg (NEG) Urine Urobilinogen Dipstick 0.2 mg/dL (0.2 mg/dL) Urine Leukocyte Esterase Neg (NEG) Urine RBC 0 /HPF (0-2) Urine WBC Rare /HPF (0-4) Urine Squamous Epithelial Cells Few /LPF Urine Bacteria 0 /HPF (0-FEW) Vital Signs: Vital Signs Date Time Temp Pulse Resp B/P (MAP) Pulse Ox O2 Delivery O2 Flow Rate FiO2 08/25/21 21:19 87 18 87/58 (68) 95 Room Air 08/25/21 19:25 16 08/25/21 18:03 98.7 107 18 113/90 (98) 99 Room Air Vital Signs Date Time Temp Pulse Resp B/P (MAP) Pulse Ox O2 Delivery O2 Flow Rate FiO2 08/25/21 19:25 16 08/25/21 18:03 98.7 107 113/90 (98) 99 Room Air (EDMUNDO BERNAL WASTEWATER SUPERINTENDENT) EKG: EKG: [] (EDMUNDO BERNAL WASTEWATER SUPERINTENDENT) Radiology/Procedures: Radiology/Procedures: REASON: epigastric pain, RUQ PROCEDURE: ABDOMEN OR LWR BACK LTD Exam: Ultrasound abdomen limited CLINICAL HISTORY: Right upper quadrant pain. Epigastric pain. COMPARISON: None available. TECHNIQUE: Limited ultrasound examination of the right upper quadrant of the abdomen was performed FINDINGS: The head and body of the pancreas are unremarkable. The tail is obscured by intestinal gas.. Liver: 13.4 cm in length. The hepatic margin is smooth and the hepatic echogenicity is normal. There are no focal liver lesions. Flow seen within the portal veins. Biliary: No cholelithiasis. No wall thickening or pericholecystic fluid. Gallbladder is contracted. There is no pain with direct transducer pressure over the gallbladder. Common bile duct measures 0.1 cm. Right Kidney: 12.5 cm in bipolar length. Normal renal cortical echotexture and thickness. No focal renal lesion, or shadowing renal calculus. Trace pelvocaliectasis. Visualized portions of the abdominal aorta and inferior vena cava are unremarkable. There is no free fluid in the subhepatic space. IMPRESSION: Gallbladder is contracted. No sonographic evidence for cholecystitis. Trace right pelvocaliectasis. Electronically signed by: Yan Cardozo MD (08/25/2021 9:04 PM) [facility] (EDMUNDO BERNAL APRN) Heart Score: C/O Chest Pain: N/A Risk Factors: Risk Factors: DM, Current or recent (<one month) smoker, HTN, HLP, family history of CAD, obesity. Risk Scores: Score 0 - 3: 2.5% MACE over next 6 weeks - Discharge Home Score 4 - 6: 20.3% MACE over next 6 weeks - Admit for Clinical Observation Score 7 - 10: 72.7% MACE over next 6 weeks - Early Invasive Strategies (EDMUNDO BERNAL APRN) Course & Med Decision Making: Course & Med Decision Making Pertinent Labs and Imaging studies reviewed. (See chart for details) 2114 reviewed radiology and lab results with patient and significant other, inform them that the gallbladder looks normal at this time, labs did not show any gallbladder issues, or infectious processes going on at this time. We will send patient home, patient states she has oxycodone at home and does not need any more pain medications at this time, patient is requesting something different for nausea and vomiting, will call in a prescription for Phenergan p.o.. Instructed patient and significant other to follow-up with PETAR Carter, in the a.m. along with her primary care physician for further management of her abdominal pain patient and significant other are agreeable to the plan of care. (EDMUNDO BERNAL APRN) Isaac Disclaimer: Dragon Disclaimer: This electronic medical record was generated, in whole or in part, using a voice recognition dictation system. (EDMUNDO BERNAL WASTEWATER SUPERINTENDENT) Departure Departure: Impression: Primary Impression: Abdominal pain Qualified Codes: R10.11 - Right upper quadrant pain Disposition: HOME / SELF CARE / HOMELESS Condition: STABLE Referrals: ROBERT LUTZ (PCP) LISBETH SILVERMAN MD Patient Instructions: Abdominal Pain, Diet for Gastroesophageal Reflux Disease, Adult Additional Instructions: Clear liquids for the next 12 to 24 hours, then proceed with a brat diet (bananas, rice, applesauce, toast, and potatoes), then advance diet as tolerated if no nausea or vomiting or pain occur Continue your own opioid medication for pain Phenergan 1 tablet every 8 hours as needed for nausea and vomiting, after taking for nausea wait 30 to 45 minutes per chart before trying water Follow-up with Dr. Silverman and your primary care physician in the a.m. for further management of your abdominal pain Scripts Promethazine Hcl (PROMETHAZINE HCL) 25 Mg Tablet 1 TAB PO PRN Q8HRS PRN for NAUSEA, #20 TAB Prov: EDMUNDO BERNAL WASTEWATER SUPERINTENDENT 08/25/21 Attending Signature Attending Signature I have reviewed the PA/GLOBAL ACCOUNT MANAGER's note and plan of care. I was available for consultation as needed during the patient's visit in the emergency department. I agree with the clinical impression, plan, and disposition. (ARINA ROBLERO DO) EDMUNDO BERNAL APRN Aug 25, 2021 19:34 ARINA ROBLERO DO Aug 26, 2021 01:27
--- NOTE | 2021-08-25 21:06 | RAD ---
Exam: Ultrasound abdomen limited CLINICAL HISTORY: Right upper quadrant pain. Epigastric pain. COMPARISON: None available. TECHNIQUE: Limited ultrasound examination of the right upper quadrant of the abdomen was performed FINDINGS: The head and body of the pancreas are unremarkable. The tail is obscured by intestinal gas.. Liver: 13.4 cm in length. The hepatic margin is smooth and the hepatic echogenicity is normal. The re are no focal liver lesions. Flow seen within the portal veins. Biliary: No cholelithiasis. No wall thickening or pericholecystic fluid. Gallbladder is contracted. There is no pain with direct transducer pressure over the gallbladder. Common bile duct measures 0.1 cm. Right Kidney: 12.5 cm in bipolar length. Normal renal cortical echotexture and thickness. No focal re nal lesion, or shadowing renal calculus. Trace pelvocaliectasis. Visualized portions of the abdominal aorta and inferior vena cava are unremarkable. There is no free fluid in the subhepatic space. IMPRESSION: Gallbladder is contracted. No sonographic evidence for cholecystitis. Trace right pelvocaliectasis. Electronically signed by: Yan Cardozo MD (08/25/2021 9:04 PM) [facility]
[2021-08-25 21:19] VITALS: BP 87/58
[2021-08-25] MEDS ORDERED: PROM25TA10 PO (21:22)
== END 2021-08-25 21:28 | disposition home or self-care (01) ==
LOC: ER 17:51
DX: R10.11 Right upper quadrant pain (principal); R11.2 Nausea with vomiting, unspecified; F41.9 Anxiety disorder, unspecified; K21.9 Gastro-esophageal reflux disease without esophagitis; Z90.710 Acquired absence of both cervix and uterus; Z98.51 Tubal ligation status; Z90.722 Acquired absence of ovaries, bilateral; Z88.8 Allergy status to other drugs, medicaments and biological substances; Z91.040 Latex allergy status
CPT/HCPCS: 36415; 76705; 80053; 81001; 83690; 85025; 96361; 96374; 96375; 99284; J1200; J2405; J2765; J3010; J7030

== ENCOUNTER 2021-10-17 16:59 | Emergency (ER) | payer OTHER ==
[~2021-10-17] VITALS: Ht 157.5 cm; Wt 42.9 kg
[~2021-10-17 16:59] MED LIST changes: +PROM25TA10 PO
--- NOTE | 2021-10-17 18:06 | PHYS DOC ---
Past History Past Medical History: Anxiety, Endometriosis, GERD Additional Past Medical Histor: endometriosis, absentee-shawnee diseasa, PTSD (LEANNE SOLIZ APRN) Past Surgical History: Hysterectomy, Oophorectomy, Tubal ligation, Other Additional Past Surgical Histo: Hernia with mesh placement (LEANNE SOLIZ APRN) Alcohol Use: None Drug Use: None (LEANNE SOLIZ APRN) General Adult EDM: Chief Complaint: ABDOMINAL PAIN HPI: HPI: Patient is a 41-year-old female who presents to the emergency department for rig ht upper quadrant pain that has been intermittent for a long time. Patient reports that she saw Dr. Silverman several weeks ago and was told she had a gallbladder issue and needed to have surgery. She reports that she has been putting off surgery. She reports that the abdominal pain has been worse over the last week. She is reporting nausea and diarrhea and a fever. She denies a ny vomiting, urinary symptoms or blood in her stools. She has a history of chronic abdominal pain due to adhesions from a previous abdominal surgery in which she takes oxycodone. (LEANNE SOLIZ APRN) Review of Systems: Review of Systems: Constitutional: negative unless reported in HPI Eyes: negative unless reported in HPI HENT: negative unless reported in HPI Respiratory: negative unless reported in HPI Cardiovascular: negative unless reported in HPI GI: negative unless reported in HPI : negative unless reported in HPI Musculoskeletal: negative unless reported in HPI Integument: negative unless reported in HPI Neurologic: negative unless reported in HPI Endocrine: negative unless reported in HPI Lymphatic: negative unless reported in HPI Psychiatric: negative unless reported in HPI (LEANNE SOLIZ APRN) Allergies: Allergies: Allergies Coded Allergies Type Severity Reaction Last Updated Verified adhesive Allergy Unknown 08/25/21 Yes latex Allergy Unknown 08/25/21 Yes (LEANNE SOLIZ APRN) Physical Exam: PE: Constitutional: Well developed, well nourished, no acute distress, non-toxic appearance. [] HENT: Normocephalic, atraumatic, bilateral external ears normal, oropharynx moist, no oral exudates, nose normal. [] Eyes: PERRL, EOMI, conjunctiva normal, no discharge. [] Neck: Normal range of motion, no stridor Cardiovascular:Heart rate regular rhythm, no murmur [] Lungs & Thorax: Bilateral breath sounds clear to auscultation [] Abdomen: Bowel sounds normal, soft, no abdominal rigidity, right upper quadrant pain with outpatient,, no masses, no pulsatile masses. [] Skin: Warm, dry, no erythema, no rash. [] Back: No tenderness, right-sided CVA tenderness Extremities: No tenderness, no cyanosis, no clubbing, ROM intact, no edema. [] Neurologic: Alert and oriented X 3, normal motor function, normal sensory function, no focal deficits noted. [] Psychologic: Affect normal, judgement normal, mood normal. [] (LEANNE SOLIZ APRN) Current Patient Data: Labs: Laboratory Tests Test 10/17/21 17:50 10/17/21 18:00 10/17/21 18:20 Urine Collection Type Clean catch Urine Color Yellow Urine Clarity Clear Urine pH 6.5 Urine Specific [place] 1.010 Urine Protein Neg Urine Glucose (UA) Neg mg/dL Urine Ketones (Stick) Neg mg/dL Urine Blood Neg Urine Nitrite Neg Urine Bilirubin Neg Urine Urobilinogen Dipstick 0.2 mg/dL Urine Leukocyte Esterase Neg Urine RBC 0 /HPF Urine WBC 0 /HPF Urine Squamous Epithelial Cells Few /LPF Urine Bacteria 0 /HPF Bedside Urine HCG, Qualitative hcg negative White Blood Count 7.0 x10^3/uL Red Blood Count 4.13 x10^6/uL Hemoglobin 13.2 g/dL Hematocrit 38.9 % Mean Corpuscular Volume 94 fL Mean Corpuscular Hemoglobin 32 pg Mean Corpuscular Hemoglobin Concent 34 g/dL Red Cell Distribution Width 12.8 % Platelet Count 169 x10^3/uL Neutrophils (%) (Auto) 67 % Lymphocytes (%) (Auto) 26 % Monocytes (%) (Auto) 6 % Eosinophils (%) (Auto) 1 % Basophils (%) (Auto) 1 % Neutrophils # (Auto) 4.7 x10^3uL Lymphocytes # (Auto) 1.8 x10^3/uL Monocytes # (Auto) 0.4 x10^3/uL Eosinophils # (Auto) 0.1 x10^3/uL Basophils # (Auto) 0.0 x10^3/uL Sodium Level 140 mmol/L Potassium Level 3.8 mmol/L Chloride Level 108 mmol/L Carbon Dioxide Level 28 mmol/L Anion Gap 4 Blood Urea Nitrogen 6 mg/dL Creatinine 0.6 mg/dL Estimated GFR (Cockcroft-Gault) 111.3 BUN/Creatinine Ratio 10 Glucose Level 97 mg/dL Calcium Level 8.5 mg/dL Total Bilirubin 0.3 mg/dL Aspartate Amino Transf (AST/SGOT) 19 U/L Alanine Aminotransferase (ALT/SGPT) 29 U/L Alkaline Phosphatase 52 U/L Total Protein 6.6 g/dL Albumin 3.7 g/dL Albumin/Globulin Ratio 1.3 Lipase 83 U/L Current Medications Medications (Trade) Dose Ordered Sig/Angelita Route PRN Reason Start Time Stop Time Status Last Admin Dose Admin Sodium Chloride 1,000 ml @ 1,000 mls/hr Q1H IV 10/17/21 18:30 10/17/21 19:29 10/17/21 18:15 Ondansetron HCl (Zofran) 4 mg 1X ONCE IVP 10/17/21 18:30 10/17/21 18:31 DC 10/17/21 18:15 Fentanyl Citrate (Fentanyl 2ml Vial) 50 mcg 1X ONCE IVP 10/17/21 18:30 10/17/21 18:31 DC 10/17/21 18:15 Iohexol (Omnipaque 300 Mg/ml) 75 ml 1X ONCE IV 10/17/21 18:30 10/17/21 18:31 DC 10/17/21 18:23 (LEANNE SOLIZ APRN) EKG: EKG: [] (LEANNE SOLIZ APRN) Radiology/Procedures: Radiology/Procedures: []PROCEDURE: CT ABD PELV W/ IV CONTRST ONLY CT ABDOMEN+PELVIS W History: Reason: Right sided abdominal pain, nausea, diarrhea Omni 300 75cc / Spl. Instructions: / History: Technique: After the administration of intravenous contrast, CT imaging was performed of the abdomen and pelvis. Multiplanar images are reviewed. Exposure: One or more of the following individualized dose reduction techniques were utilized for this examination: 1. Automated exposure control 2. Adjustment of the mA and/or kV according to patient size 3. Use of iterative reconstruction technique. Comparison: August 12, 2021 Findings: Lower chest: No consolidation or pleural effusion. Abdomen and pelvis: Mild periportal edema. Hepatomegaly measures 20.1 cm. Heterogeneous appearance of the spleen with ill-defined hypodense lesions measure 1.1 and 1.3 cm. adrenal glands, pancreas and gallbladder are unremarkable. No common bile duct dilatation. No renal calculus or hydronephrosis. Decompressed urinary bladder. Postoperative changes in the region of the distal rectum. Appendicoliths within the nondilated appendix. No evidence of bowel obstruction. Decompressed mid to distal colon. No pathologic lymphadenopathy. Small pelvic free fluid. Prior hysterectomy. Anterior abdominal wall mesh hernia repair. Bones: No pathologic osseous lesions. Impression: 1. Hepatomegaly with mild periportal edema, may relate to inflammation. Recommend correlation with liver function tests. 2. Small pelvic free fluid. 3. Heterogeneous splenic lesions, may represent hemangiomas. Electronically signed by: Jae Noel DO (10/17/2021 6:49 PM) [facility] DICTATED AND SIGNED BY: JAE NOEL DO DATE: 10/17/211839 CC: ROBERT LUTZ; LEANNE SOLIZ APRN ~MTH0 0 (LEANNE SOLIZ APRN) Heart Score: C/O Chest Pain: N/A Risk Factors: Risk Factors: DM, Current or recent (<one month) smoker, HTN, HLP, family history of CAD, obesity. Risk Scores: Score 0 - 3: 2.5% MACE over next 6 weeks - Discharge Home Score 4 - 6: 20.3% MACE over next 6 weeks - Admit for Clinical Observation Score 7 - 10: 72.7% MACE over next 6 weeks - Early Invasive Strategies (LEANNE SOLIZ APRN) Course & Med Decision Making: Course & Med Decision Making Pertinent Labs and Imaging studies reviewed. (See chart for details) [] Patient presents to the emergency department for right upper quadrant pain with nausea, fever, diarrhea. Patient has a known gallbladder issue diagnosed by Dr. Silverman. Work-up in the ER consisted of blood work, urinalysis and CT imaging of abdomen and pelvis. Patient was treated with IV fluids, nausea and pain medication. CBC and CMP unremarkable. Urinalysis not show any infection. CT scan of ab zee showed hepatomegaly but she does not have any elevated liver enzymes. Gallbladder was unremarkable. Patient advised to follow-up with Dr. Silverman. Her vital signs are stable she is in no acute distress. I discussed with patient all findings and diagnostic testing as well as the need to follow-up with PCP for further evaluation and treatment or return to the ER if any new or worsening symptoms. Strict return precautions were also discussed at length. Patient voiced understanding and agreement with the plan. Patient is hemodynamically stable at the time of disposition. (LEANNE SOLIZ APRN) Dragon Disclaimer: Dragon Disclaimer: This electronic medical record was generated, in whole or in part, using a voice recognition dictation system. (LEANNE SOLIZ APRN) Departure Departure: Impression: Primary Impression: Abdominal pain Qualified Codes: R10.11 - Right upper quadrant pain Disposition: HOME / SELF CARE / HOMELESS Condition: GOOD Referrals: ROBERT LUTZ (PCP) Patient Instructions: Abdominal Pain (Nonspecific), Hepatomegaly, [id number] Additional Instructions: You were seen in the emergency department for abdominal pain with nausea and diarrhea. Your blood work was unremarkable, your urinalysis did not show any infection. The CT scan of your abdomen and pelvis showed an enlarged liver but you did not have any elevated liver enzymes. Does not appear that there was any significant change in your liver enzymes when compared to previous lab findings. You will need to follow-up with Dr. Silverman as soon as possible. Please call him on Monday to set up a follow-up appointment. Continue taking your oxycodone that you have at home for your abdominal pain. Return to the emergency department if you develop worsening of your abdominal pain, intractable nausea or vomiting, high fevers refractory to treatment, blood in your stools or vomit. Dragon Disclaimer This chart was dictated in whole or in part using Voice Recognition software in a busy, high-work load, and often noisy Emergency Department environment. It may contain unintended and wholly unrecognized errors or omissions. (IRVING NUÑEZ MD) Attending Signature Attending Signature I have participated in the care of this patient and I have reviewed and agree with all pertinent clinical information above including history, exam, and billy mmendations. (IRVING NUÑEZ MD) LEANNE SOLIZ APRN Oct 17, 2021 18:06 IRVING NUÑEZ MD Oct 21, 2021 18:39
[2021-10-17 18:30] LABS: BACTERIA,URINE 0 /HPF (0-FEW); BILIRUBIN,URINE NEG (NEG); CLARITY,URINE CLEAR; COLOR,URINE YELLOW; GLUCOSE,URINE NEG (NEG); NITRITE,URINE NEG (NEG); RBC,URINE 0 /HPF (0-2); SQUAMOUS EPITHELIAL CELL,UR FEW /LPF; UROBILINOGEN,URINE 0.2 mg/dL (0.2 mg/dL); WBC,URINE 0 /HPF (0-4)
[2021-10-17] MEDS ORDERED: ONDANSETRON PF 4 MG/2 ML VIAL. IVP ONE (18:30)
[2021-10-17] MEDS ORDERED: IOHEXOL 300 MG/ML 75 ML VIAL. IV ONE (18:30)
[2021-10-17] MEDS ORDERED: IV NORMAL SALINE 1,000ML 1,000 ML IV SCH (18:30)
[2021-10-17 18:41] LABS: BASO % 1 % (0-3); EOS # 0.1 x10^3/uL (0.0-0.7); EOS % 1 % (0-3); HEMATOCRIT 38.9 % (36.0-47.0); HEMOGLOBIN 13.2 g/dL (12.0-15.5); LYMPH # 1.8 x10^3/uL (1.0-4.8); LYMPH % 26 % (24-48); MEAN CORPUSCULAR HEMOGLOBIN 32 pg (25-35); MEAN CORPUSCULAR HGB CONC 34 g/dL (31-37); MEAN CORPUSCULAR VOLUME 94 fL (79-100); MONO # 0.4 x10^3/uL (0.0-1.1); MONO % 6 % (0-9); NEUT # 4.7 x10^3uL (1.8-7.7); NEUT % 67 % (31-73); PLATELET COUNT 169 x10^3/uL (140-400); RED BLOOD COUNT 4.13 x10^6/uL (3.50-5.40); RED CELL DISTRIBUTION WIDTH 12.8 % (11.5-14.5)
[2021-10-17 18:46] LABS: CALCIUM 8.5 mg/dL (8.5-10.1); CREATININE 0.6 mg/dL (0.6-1.0); GFR 111.3; POTASSIUM 3.8 mmol/L (3.5-5.1)
--- NOTE | 2021-10-17 18:51 | RAD ---
CT ABDOMEN+PELVIS W History: Reason: Right sided abdominal pain, nausea, diarrhea Omni 300 75cc / Spl. Instructions: / H istory: Technique: After the administration of intravenous contrast, CT imaging was performed of the abdomen and pelvis. Multiplanar images are reviewed. Exposure: One or more of the following individualized dose reduction techniques were utilized for thi s examination: 1. Automated exposure control 2. Adjustment of the mA and/or kV according to patient size 3. Use of iterative reconstruction technique. Comparison: August 12, 2021 Findings: Lower chest: No consolidation or pleural effusion. Abdomen and pelvis: Mild periportal edema. Hepatomegaly measures 20.1 cm. Heterogeneous appearance of the spleen with ill-defined hypodense lesions measure 1.1 and 1.3 cm. adrenal glands, pancreas and g allbladder are unremarkable. No common bile duct dilatation. No renal calculus or hydronephrosis. Dec ompressed urinary bladder. Postoperative changes in the region of the distal rectum. Appendicoliths within the nondilated append ix. No evidence of bowel obstruction. Decompressed mid to distal colon. No pathologic lymphadenopathy . Small pelvic free fluid. Prior hysterectomy. Anterior abdominal wall mesh hernia repair. Bones: No pathologic osseous lesions. Impression: 1. Hepatomegaly with mild periportal edema, may relate to inflammation. Recommend correlation with l iver function tests. 2. Small pelvic free fluid. 3. Heterogeneous splenic lesions, may represent hemangiomas. Electronically signed by: Jae Noel DO (10/17/2021 6:49 PM) [facility]
[2021-10-17 18:54] LABS: ALBUMIN 3.7 g/dL (3.4-5.0); ALBUMIN/GLOBULIN RATIO 1.3 (1.0-1.7); TOTAL BILIRUBIN 0.3 mg/dL (0.2-1.0); TOTAL PROTEIN 6.6 g/dL (6.4-8.2)
[2021-10-17] MEDS ORDERED: MORPHINE SULFATE 4 MG/ML DISP.SYRIN. IV ONE (19:30)
[2021-10-17 20:00] VITALS: BP 89/59
== END 2021-10-17 20:00 | disposition home or self-care (01) ==
LOC: ER 16:59
DX: R10.11 Right upper quadrant pain (principal); R19.7 Diarrhea, unspecified; K21.9 Gastro-esophageal reflux disease without esophagitis; Z90.710 Acquired absence of both cervix and uterus; Z98.51 Tubal ligation status; Z90.722 Acquired absence of ovaries, bilateral; Z88.8 Allergy status to other drugs, medicaments and biological substances; Z91.040 Latex allergy status
CPT/HCPCS: 36415; 74177; 80053; 81001; 81025; 83690; 85025; 96361; 96374; 96375; 99285; J2270; J2405; J3010; J7030; Q9967